=== PATIENT | female | born 1945 | race Caucasian/White ===

== ENCOUNTER 2018-07-31 12:02 | Day surgery (SDC) | payer MEDICARE ==
[~2018-07-31] VITALS: Ht 1844 cm; Wt 137.9 kg
--- NOTE | ~2018-07-31 | OP ---
PATIENT NAME: DENIZ JARRELL MEDICAL RECORD: [id number] :41 LOCATION:[facility] ADMISSION DATE: SURGEON: SELENA LEWIS MD DATE OF OPERATION: 07/31/2018 PREOPERATIVE DIAGNOSES: End-stage renal disease and morbid obesity. POSTOPERATIVE DIAGNOSES: End-stage renal disease and morbid obesity. OPERATION PERFORMED: Creation of a left brachiocephalic arteriovenous fistula. SURGEON: Selena Lewis MD ANESTHESIA: General per AUTOCAD DETAILER. REFERRING PHYSICIAN: Dr. Paulson PREOPERATIVE NOTE: Ms. Jarrell is a 73-year-old white female patient near [place]. She is on chronic hemodialysis and needs long-term access. She is brought to the operating room now for creation of a fistula in her left arm. She is right handed. She has had vein mapping, which indicated she would be a good candidate for a left radiocephalic Rachid type AV fistula. DESCRIPTION OF PROCEDURE: Under general anesthesia and without a nerve block, the patient was prepped and draped in sterile manner. I examined her with ultrasound and found that the radial artery at the wrist was probably the limiting factor. It was heavily calcified and demonstrated areas of stenosis and I thought it was not a good artery to base a fistula on. The brachial artery and median cubital vein at the antecubital level were excellent. I made a transverse incision and exposed the artery and vein. They were occluded and controlled with Silastic loops and atraumatic vascular clamps as needed. The vein was distally ligated, transected and bevelled and the artery occluded at the bifurcation was Silastic tapes. The artery was opened and flushed proximally and distally with heparinized saline. The vein was flushed with heparinized saline and treated with topical papaverine. It was anastomosed end-to-side, end-of-vein to [id number] with running 7-0 Prolene and when that suture line was completed, it was hemostatic. Excellent flow was demonstrated by excellent pulsation and palpable thrill developed immediately upon release of clamps and loops. Doppler demonstrated pulsatile continuous flow. The wound was irrigated with Ancef-gentamicin solution, infiltrated with 0.25% Marcaine and closed with interrupted inverted 3-0 Vicryl and running intracuticular 4-0 Monocryl and Dermabond glue. It was dressed with Maxorb Ag, Tegaderm, and Cavilon skin prep, and the patient awakened and taken to the recovery room. There was no blood loss during the procedure. Sponges, instruments, and needles were accounted for. No specimen was submitted for histopathology. PLAN: The patient will be discharged to home this evening. She is given a prescription for 14 tablets of [place] 5/325, she can take for pain. She is to continue her home medications, diet, dialysis schedule, etc. She is to return to see me in my office next week. TRANSINT:[id number] Voice Confirmation ID: [id number] DOCUMENT ID: [id number] cc: Estefany Powers OPERATIVE REPORT [id number] DENIZ JARRELL JAMES MD CC: LYLE PAULSON MD and [facility] [id number] DICTATION DATE: 07/31/181899 CUTTING SUPERVISOR: 07/31/182328 [facility] 07/31/18 [facility] [address] [place] [address]
[2018-07-31 12:50] LABS: BASOPHILS 0.3 % (0-2); EOSINOPHILS 2.9 % (0-7); HEMATOCRIT 33.4 % (36.0-48.0); IMMATURE GRANULOCYTES 1.9 % (0-5); MCH 31.2 pg (26.0-34.0); MCHC 32.9 g/dL (31.0-37.0); MCV 94.6 fL (80.0-100.0); MEAN PLATELET VOLUME 9.3 fL (7.4-10.4); MONOCYTES 8.2 % (2-11); NEUTROPHILS 73.7 % (40-80); PLATELET COUNT 215 10x3/uL (130-400); RBC 3.53 10x6/uL (4.00-5.40); RDW 15.4 % (11.5-14.5); WBC 11.2 10x3/uL (4.8-10.8)
[2018-07-31 12:57] LABS: INR 1.12 (0.85-1.17); PROTIME 13.9 SECONDS (11.6-15.0)
[2018-07-31 13:06] LABS: CALCIUM 8.6 mg/dL (8.5-10.1); CARBON DIOXIDE 26.2 mmol/L (21.0-32.0); CREATININE - SERUM 3.8 mg/dL (0.6-1.3); POTASSIUM - SERUM 4.2 mmol/L (3.5-5.1)
[2018-07-31] MEDS ORDERED: DALIRESP500 MCG (14:16)
[2018-07-31] MEDS ORDERED: ISOSORBIDE MONO30 M1 (14:16)
[2018-07-31] MEDS ORDERED: OMEPRAZOLE CAP 20M (14:17)
[2018-07-31] MEDS ORDERED: CARDIZEM120 MG PO (14:17)
[2018-07-31] MEDS ORDERED: COUMADIN7.5 MG (14:18)
[2018-07-31] MEDS ORDERED: ZOFRAN4 MG (14:18)
[2018-07-31] MEDS ORDERED: PROTONIX40 MG (14:18)
[2018-07-31] MEDS ORDERED: LEVOTHYROXINE50 MCG (14:18)
[2018-07-31] MEDS ORDERED: LIPITOR10 MG PO (14:19)
[2018-07-31] MEDS ORDERED: HYDROCODON-ACE1 EA10 PO (14:19)
[2018-07-31] MEDS ORDERED: NOVOLOG INJ FLE (14:19)
[2018-07-31] MEDS ORDERED: AMITIZA8 MCG PO (14:20)
[2018-07-31] MEDS ORDERED: ZOLOFT100 MG PO (14:20)
[2018-07-31] MEDS ORDERED: BASAGLAR K100 UNIT/1 SC (14:20)
[2018-07-31] MEDS ORDERED: ZITHROMAX TRI-500 MG (14:21)
[2018-07-31] MEDS ORDERED: FUROSEMIDE40 MG PO (14:21)
[2018-07-31] MEDS ORDERED: ULORIC40 MG PO (14:22)
[2018-07-31 14:39] VITALS: Ht 1844 cm; Wt 137.9 kg
[2018-07-31] MEDS ORDERED: HYDROCODON-ACE1 EAC7 PO (18:54)
--- NOTE | 2018-07-31 19:31 | NUR ---
CONSULTED ANESTHESIA REGARDING INCREASED BLOOD SUGAR LEVELS OF 312MG/DL. VERBAL ORDERS RECEIVED PER DR WILLIAM/JACQUE WALTON CRNA TO ADMINISTER 10U REGULAR INSULIN NOW IN PACU AND RECHECK AGAIN IN 30 MINUTES.
[2018-07-31 20:29] VITALS: BP 177/48
[2018-07-31 20:45] VITALS: BP 177/48
[2018-07-31 23:40] VITALS: BP 127/76
== END 2018-07-31 23:00 | disposition home or self-care (01) ==
LOC: D.OPS 12:02 → D.M2 19:47 → D.OPS 23:00
PROVIDERS: Surgery; ATTEND Internal Medicine Nephrology
DX: N18.6 End stage renal disease (principal); Z01.812 Encounter for preprocedural laboratory examination

== ENCOUNTER 2019-07-23 16:58 | Inpatient (IN) | payer MEDICARE ==
[~2019-07-23] VITALS: Ht 177.8 cm; Wt 138.6 kg
[~2019-07-23 16:58] MED LIST: AMITIZA8 MCG PO; BASAGLAR K100 UNIT/1 SC; CARDIZEM120 MG PO; COUMADIN7.5 MG PO; DALIRESP500 MCG; FUROSEMIDE40 MG PO; HYDROCODON-ACE1 EA10 PO; HYDROCODON-ACE1 EAC7 PO; ISOSORBIDE MONO30 M1; LEVOTHYROXINE50 MCG PO; LIPITOR10 MG PO; NOVOLOG INJ FLE SQ; OMEPRAZOLE CAP 20M PO; PROTONIX40 MG PO; ULORIC40 MG PO; ZITHROMAX TRI-500 MG; ZOFRAN4 MG PO; ZOLOFT100 MG PO
[2019-07-23 17:44] LABS: BASOPHILS 0.2 % (0-2); EOSINOPHILS 1.2 % (0-7); HEMATOCRIT 30.4 % (36.0-48.0); HEMOGLOBIN 10.1 g/dL (12-16); LYMPHOCYTES 8.2 % (15-50); MCH 32.6 pg (26.0-34.0); MCHC 33.2 g/dL (31.0-37.0); MCV 98.1 fL (80.0-100.0); MEAN PLATELET VOLUME 9.1 fL (7.4-10.4); MONOCYTES 10.5 % (2-11); NEUTROPHILS 78.9 % (40-80); PLATELET COUNT 226 10x3/uL (130-400); RDW 15.5 % (11.5-14.5); WBC 12.4 10x3/uL (4.8-10.8)
[2019-07-23 17:59] LABS: APTT 54.4 SECONDS (22.8-39.4); INR 3.26 (0.85-1.17); PROTIME 32.7 SECONDS (11.6-15.0)
[2019-07-23 18:02] LABS: CALC OSMOLALITY 291 mosm/kg (275-300); CALCIUM 9.1 mg/dL (8.5-10.1); CHLORIDE - SERUM 96 mmol/L (98-107); CREATININE - SERUM 6.7 mg/dL (0.6-1.3); GLUCOSE 263 mg/dL (74-106); POTASSIUM - SERUM 4.8 mmol/L (3.5-5.1); SODIUM 133 mmol/L (136-145); UREA NITROGEN 60 mg/dL (7-18); eGFR NON AFRICAN AMERICAN 6 mL/min (90-120)
[2019-07-23 18:19] LABS: ALKALINE PHOSPHATASE 101 U/L (30-120); ALT (SGPT) 16 U/L (10-68); BILIRUBIN - TOTAL 0.64 mg/dL (0.2-1.3); CKMB 0.7 U/L (0.0-3.6); CREATINE KINASE 53 UL (21-215); PRO BNP 3487 pg/mL (0-450); PROTEIN - SERUM 7.3 g/dL (6.4-8.2)
[2019-07-23 18:22] LABS: TROPONIN-I < 0.017 ng/mL (0.000-0.060)
--- NOTE | 2019-07-23 19:16 | NUR ---
REPORT TO KIM ECHEVARRIA
--- NOTE | 2019-07-23 20:00 | NUR ---
[facility] WHO RECIEVED REPORT FROM TISSUE COORDINATOR. PT ARRIVED BY WHEELCHAIR. PT AFVSS, AAOX4, NO S/S OF RT DISTRESS. RR EVEN AND UNLABORED. PT ON 4L O2. PT IV CEFTRIAXONE INFUSING ON ARRIVAL. WILL ADMINISTER ZITHROMAX WHEN COMPLETED. PT DENIES ANY FURTHER NEEDS AT THIS TIME. WILL CPOC. PT ORIENTED TO ROOM. CL WITHIN REACH, BED IN LOW, SR UP X2.
--- NOTE | 2019-07-23 20:30 | NUR ---
DIALYSIS NURSE IN PT'S ROOM AT THIS TIME. IV ZITHROMAX INFUSING. FSBS 268. TREATED PER SLIDING SCALE. PT STATES SHE HAS NOT HAD ANYTHING TO EAT SINCE MONDAY. SANDWICH WITH PROVIDED. PT VOICED THANKS. PT DENIES ANY FURTHER NEEDS AT THIS TIME. WILL CPOC. CL WITHIN REACH, BED IN LOW, SR UP X2.
--- NOTE | 2019-07-23 21:27 | NUR ---
PT ON HOME CPAP AT THIS TIME. NOTIFY RT TO HELP SET UP.
[2019-07-23 21:49] VITALS: BP 159/60; BMI 44.2
[2019-07-24 01:14] VITALS: BP 141/95
[2019-07-24 04:37] LABS: BASOPHILS 0.1 % (0-2); EOSINOPHILS 2.5 % (0-7); HEMATOCRIT 30.3 % (36.0-48.0); IMMATURE GRANULOCYTES 0.9 % (0-5); LYMPHOCYTES 9.8 % (15-50); MCH 32.3 pg (26.0-34.0); MCV 97.7 fL (80.0-100.0); MEAN PLATELET VOLUME 8.8 fL (7.4-10.4); MONOCYTES 11.4 % (2-11); NEUTROPHILS 75.3 % (40-80); PLATELET COUNT 205 10x3/uL (130-400); RDW 15.5 % (11.5-14.5); WBC 10.2 10x3/uL (4.8-10.8)
[2019-07-24 05:01] LABS: ALBUMIN 2.9 g/dL (3.4-5.0); ANION GAP 13.7 mmol/L (8-16); BILIRUBIN - TOTAL 0.56 mg/dL (0.2-1.3); CALCIUM 8.4 mg/dL (8.5-10.1); CARBON DIOXIDE 29.5 mmol/L (21.0-32.0); CREATININE - SERUM 5.4 mg/dL (0.6-1.3); MAGNESIUM - SERUM 1.9 mg/dL (1.8-2.4); PHOSPHOROUS 3.7 mg/dL (2.5-4.9); POTASSIUM - SERUM 4.2 mmol/L (3.5-5.1); PROTEIN - SERUM 7.3 g/dL (6.4-8.2)
[2019-07-24 06:51] VITALS: BP 119/70
--- NOTE | 2019-07-24 10:28 | NUR ---
CALLED [facility] AT [phone] SPOKE WITH JU, ASKED HER TO FAX A LIST OF PT'S MEDICATIONS TO [phone].
--- NOTE | 2019-07-24 11:14 | NUR ---
BLOOD SUGAR OF 348, 8UNITS GIVEN PER S/S. PT RESTING COMFORTABLY IN BED, DENIES ANY NEEDS AT THIS TIME. CALL LIGHT IN REACH, NAD NOTED.
[2019-07-24 11:25] VITALS: BP 127/41
[2019-07-24] MEDS ORDERED: REGLAN5 MG PO (13:38)
[2019-07-24] MEDS ORDERED: FUROSEMIDE20 MG PO (13:41)
[2019-07-24] MEDS ORDERED: PERCOCET 10-321 EAC1 PO (13:45)
[2019-07-24] MEDS ORDERED: ISOSORBIDE MONO30 M1 PO (13:47)
[2019-07-24] MEDS ORDERED: XALATAN 0.0052.5 ML EACH EYE (13:47)
[2019-07-24] MEDS ORDERED: EMLA CREAM 30 G30 G1 TOPICAL (13:48)
[2019-07-24] MEDS ORDERED: LANOXIN125 MCG PO (13:49)
[2019-07-24] MEDS ORDERED: DULCOLAX5 MG PO (13:50)
[2019-07-24] MEDS ORDERED: PHOSLO667 MG PO (13:50)
[2019-07-24] MEDS ORDERED: LANTUS (13:51)
[2019-07-24 14:26] VITALS: BP 113/37
[2019-07-24 14:38] VITALS: Ht 177.8 cm; Wt 138.6 kg
--- NOTE | 2019-07-24 15:49 | NUR ---
PER RISHI HUGO PT NEEDS TO STAY ON DROPLET ISOLATION BECAUSE SHE TESTED POSITIVE IN THE DIALYSIS UNIT AND NEGATIVE HERE.
[2019-07-24 18:31] VITALS: BP 157/81
[2019-07-24 20:00] VITALS: BP 190/61
[2019-07-25 01:33] VITALS: BP 137/71
--- NOTE | 2019-07-25 01:58 | NUR ---
PT LYING IN BED RESTING WITH EYES CLOSED. EASILY AWAKEN WITH VOICE STIMULATION. PT IS WEARING HOME BIPAP. NO SIGNS OR SYMPOTMS OF DISTRESS NOTED RESPIRATIONS EVEN AND UNLABORED. PM SNACK GIVEN. PT ENCOURAGED TO CALL FOR HELP WHEN NEEDED. CALL LIGHT WITH IN REACH AND BED IS IN ITS LOWEST POSITON. WILL CONTINUE TO MONITOR
[2019-07-25 04:00] VITALS: BP 121/52
--- NOTE | 2019-07-25 04:07 | NUR ---
PT LYING IN BED RESTING NO DISTRESS NOTED. EASILY AWAKEN WITH VOICE STIMULATION. PT ENCOURAGED TO CALL FOR HELP WHEN GETTING IN AND OUT OF BED. CALL LIGHT WITH IN REACH. WILL CONTINUE TO MONITOR
--- NOTE | 2019-07-25 04:54 | NUR ---
I have reviewed this patient and I concur with the Shift Assessment completed by the Licensed Practical Nurse today this shift.
[2019-07-25 05:56] LABS: BASOPHILS 0.2 % (0-2); EOSINOPHILS 5.6 % (0-7); HEMATOCRIT 28.4 % (36.0-48.0); HEMOGLOBIN 9.4 g/dL (12-16); IMMATURE GRANULOCYTES 0.9 % (0-5); LYMPHOCYTES 10.5 % (15-50); MCH 32.4 pg (26.0-34.0); MCHC 33.1 g/dL (31.0-37.0); MCV 97.9 fL (80.0-100.0); MEAN PLATELET VOLUME 9.1 fL (7.4-10.4); MONOCYTES 10.5 % (2-11); NEUTROPHILS 72.3 % (40-80); PLATELET COUNT 207 10x3/uL (130-400); RDW 15.4 % (11.5-14.5); WBC 9.3 10x3/uL (4.8-10.8)
[2019-07-25 06:04] LABS: INR 3.15 (0.85-1.17); PROTIME 31.8 SECONDS (11.6-15.0)
[2019-07-25 06:12] LABS: ANION GAP 13.9 mmol/L (8-16); CALCIUM 8.3 mg/dL (8.5-10.1); CARBON DIOXIDE 28.3 mmol/L (21.0-32.0); CREATININE - SERUM 6.2 mg/dL (0.6-1.3); POTASSIUM - SERUM 4.2 mmol/L (3.5-5.1)
[2019-07-25 06:13] LABS: PHOSPHOROUS 5.3 mg/dL (2.5-4.9)
[2019-07-25 09:35] VITALS: BP 149/58
[2019-07-25 13:42] VITALS: BP 150/55
[2019-07-25 18:32] VITALS: BP 155/73
[2019-07-25 20:00] VITALS: BP 172/45
[2019-07-26] VITALS: BP 143/36
[2019-07-26 04:00] VITALS: BP 147/45
[2019-07-26 06:36] LABS: BASOPHILS 0.2 % (0-2); HEMATOCRIT 28.4 % (36.0-48.0); HEMOGLOBIN 9.3 g/dL (12-16); LYMPHOCYTES 13.5 % (15-50); MCHC 32.7 g/dL (31.0-37.0); MCV 97.6 fL (80.0-100.0); MONOCYTES 9.3 % (2-11); PLATELET COUNT 208 10x3/uL (130-400); RBC 2.91 10x6/uL (4.00-5.40); RDW 15.4 % (11.5-14.5); WBC 8.1 10x3/uL (4.8-10.8)
[2019-07-26 07:16] LABS: ANION GAP 13.6 mmol/L (8-16); CALCIUM 7.8 mg/dL (8.5-10.1); CARBON DIOXIDE 28.5 mmol/L (21.0-32.0); CREATININE - SERUM 5.2 mg/dL (0.6-1.3); DIGOXIN 0.78 ng/mL (0.90-2.00); PHOSPHOROUS 5.2 mg/dL (2.5-4.9); POTASSIUM - SERUM 4.1 mmol/L (3.5-5.1)
[2019-07-26 09:10] VITALS: BP 152/40
[2019-07-26 10:10] LABS: HEPATITIS C ANTIBODY <0.1 S/CO RAT (0.0-0.9)
--- NOTE | 2019-07-26 10:12 | NUR ---
ASSESSMENT DONE. DENIES NEEDS
[2019-07-26 12:54] VITALS: BP 143/96
--- NOTE | 2019-07-26 13:02 | NUR ---
Nutrition Follow-up: Eating well. Noted 100% of breakfast eaten per record. Diet: Renal ADA PO intake: 100% x 4 meals No new wt; last wt: 308# (07/23) Last BM: 07/23 per chart Labs noted: Glu 307, K+ 4.1, PO4 5.2, Ca 7.8 Meds noted: Coumadin, Lasix, Phoslo, Protonix, Reglan, Humulin, Floranex -Continue current diet as tolerated. -Need new wt; noted daily wts ordered. -RD following.
--- NOTE | 2019-07-26 15:48 | NUR ---
I have reviewed this patient and I concur with the Shift Assessment completed by the Licensed Practical Nurse today this shift.
[2019-07-26 17:50] VITALS: BP 149/36
--- NOTE | 2019-07-26 19:50 | NUR ---
PT SITTING UP ON RIGHT SIDE OF BED. NO SINGS OR SYMPTOMS OF DISTRESS NOTED. RESPIRATIONS EVEN AND UNLABORED. PT ENCOURAGED TO CALL FOR HELP WHEN NEEDED. CALL LIGHT WITHI N REACH. WILL CONTINUE TO MONITOR
[2019-07-26 20:30] VITALS: BP 108/49
[2019-07-27 00:30] VITALS: BP 127/44
--- NOTE | 2019-07-27 01:08 | NUR ---
PT RESTING IN BED WITH EYES CLOSED. EASILY AWAKEN WITH VOICE STIMULATION. NO SIGNS OR SYMPTOMS OF DISTRESS NOTED. PT HAS HOME C-PAP ON. SNACK GIVEN PER PT REQUEST. CALL LIGHT WITH IN REACH WILL CONTINUE TO MONITOR.
--- NOTE | 2019-07-27 02:00 | NUR ---
I have reviewed this patient and I concur with the Shift Assessment completed by the Licensed Practical Nurse today this shift.
[2019-07-27 04:30] VITALS: BP 121/52
[2019-07-27 05:09] LABS: HEPATITIS BE ANTIGEN Negative (Negative)
[2019-07-27 06:14] LABS: BASOPHILS 0.3 % (0-2); EOSINOPHILS 5.4 % (0-7); HEMATOCRIT 27.3 % (36.0-48.0); HEMOGLOBIN 9.1 g/dL (12-16); LYMPHOCYTES 11.1 % (15-50); MCH 32.4 pg (26.0-34.0); MCHC 33.3 g/dL (31.0-37.0); MCV 97.2 fL (80.0-100.0); MEAN PLATELET VOLUME 9.4 fL (7.4-10.4); MONOCYTES 10.8 % (2-11); NEUTROPHILS 71.4 % (40-80); PLATELET COUNT 211 10x3/uL (130-400); RBC 2.81 10x6/uL (4.00-5.40); RDW 15.1 % (11.5-14.5); WBC 9.2 10x3/uL (4.8-10.8)
[2019-07-27 06:35] LABS: ANION GAP 16.7 mmol/L (8-16); CALCIUM 8.6 mg/dL (8.5-10.1); CARBON DIOXIDE 26.5 mmol/L (21.0-32.0); CREATININE - SERUM 6.2 mg/dL (0.6-1.3); PHOSPHOROUS 6.2 mg/dL (2.5-4.9); POTASSIUM - SERUM 4.2 mmol/L (3.5-5.1)
[2019-07-27 06:42] LABS: INR 2.55 (0.85-1.17); PROTIME 27.1 SECONDS (11.6-15.0)
[2019-07-27 08:58] VITALS: BP 181/75
--- NOTE | 2019-07-27 11:42 | NUR ---
PT RECIEVING DIALYSIS IN ROOM. PT A/O X4 FEELING ANXIOUS SHE CAN'T BREATH. VSS. ONE TIME ORDER FOR XANEX PUT IN . BED LOW CALL LIGHT WITHIN REACH. WILL CONTINUE TO MONITOR.
--- NOTE | 2019-07-27 12:44 | NUR ---
I have reviewed this patient and I concur with the Shift Assessment completed by the Licensed Practical Nurse today this shift.
--- NOTE | 2019-07-27 17:06 | NUR ---
1310-PT HAD DIALYSIS IN ROOM. VSS. 2L PULLED OFF. PT GOT ANXIOUS DURING TREATMENT FEELING LIKE SHE COULDNT BREATH. O2-94%. VALDEMAR DOUGLAS CONSULTED NEW ORDER RECIEVED FOR ONE TIME XANEX. BED LOW CLL LIGHT WITHIN REACH. WILL CONTINUE TO MONITOR.
[2019-07-27 17:56] VITALS: BP 146/53
[2019-07-27 20:00] VITALS: BP 149/39
[2019-07-28] VITALS: BP 154/44
[2019-07-28 04:00] VITALS: BP 135/41
[2019-07-28 06:30] LABS: INR 2.24 (0.85-1.17); PROTIME 24.5 SECONDS (11.6-15.0)
[2019-07-28 09:54] LABS: BASOPHILS 0.3 % (0-2); EOSINOPHILS 4.6 % (0-7); HEMATOCRIT 29.5 % (36.0-48.0); HEMOGLOBIN 9.6 g/dL (12-16); IMMATURE GRANULOCYTES 1.9 % (0-5); MCH 32.1 pg (26.0-34.0); MCHC 32.5 g/dL (31.0-37.0); MCV 98.7 fL (80.0-100.0); MEAN PLATELET VOLUME 9.1 fL (7.4-10.4); MONOCYTES 8.7 % (2-11); NEUTROPHILS 71.5 % (40-80); PLATELET COUNT 235 10x3/uL (130-400); RBC 2.99 10x6/uL (4.00-5.40); RDW 15.2 % (11.5-14.5); WBC 9.5 10x3/uL (4.8-10.8)
[2019-07-28 10:00] VITALS: BP 112/61
[2019-07-28 10:08] LABS: ANION GAP 14.1 mmol/L (8-16); CALCIUM 8.7 mg/dL (8.5-10.1); CARBON DIOXIDE 27.8 mmol/L (21.0-32.0); CREATININE - SERUM 5.3 mg/dL (0.6-1.3); POTASSIUM - SERUM 3.9 mmol/L (3.5-5.1)
[2019-07-28 16:37] VITALS: BP 160/65
--- NOTE | 2019-07-28 19:46 | NUR ---
CHECKED ON PT THREE TIMES CONTINUES TO REST WITH EYES CLOSED AND RESP DEVICE IN PLACE WILL CONTINUE TO OBSERVE ISOLATION BED IS LOW AND LOCKED CALL LIGHT IS IN REACH
[2019-07-28 20:00] VITALS: BP 149/39
[2019-07-29 00:30] VITALS: BP 129/38
[2019-07-29 04:00] VITALS: BP 144/36
--- NOTE | 2019-07-29 05:09 | NUR ---
I have reviewed this patient and I concur with the Shift Assessment completed by the Licensed Practical Nurse today this shift.
[2019-07-29 07:08] LABS: INR 2.21 (0.85-1.17); PROTIME 24.2 SECONDS (11.6-15.0)
[2019-07-29 07:14] LABS: ANION GAP 13.3 mmol/L (8-16); CALCIUM 8.1 mg/dL (8.5-10.1); CARBON DIOXIDE 29.7 mmol/L (21.0-32.0); CREATININE - SERUM 6.1 mg/dL (0.6-1.3)
[2019-07-29 08:09] LABS: HEMATOCRIT 25.5 % (36.0-48.0); HEMOGLOBIN 8.4 g/dL (12-16); MCH 32.1 pg (26.0-34.0); MCHC 32.9 g/dL (31.0-37.0); MCV 97.3 fL (80.0-100.0); MEAN PLATELET VOLUME 9.2 fL (7.4-10.4); PLATELET COUNT 221 10x3/uL (130-400); RBC 2.62 10x6/uL (4.00-5.40); RDW 14.9 % (11.5-14.5); WBC 10.3 10x3/uL (4.8-10.8)
[2019-07-29 09:00] VITALS: BP 145/44
--- NOTE | 2019-07-29 09:40 | NUR ---
PT TAKEN TO DIALYSIS VIA BED.
[2019-07-29 10:09] LABS: EOSINOPHILS 1 % (0-7); LYMPHOCYTES 9 % (15-50); MONOCYTES 9 % (2-11); NEUTROPHILS 81 % (40-80); PLATELET ESTIMATE NORMAL
--- NOTE | 2019-07-29 10:12 | MORECARE ---
CASE MANAGEMENT DISCHARGE SUMMARY PATIENT: DENIZ JARRELL UNIT: [id number] ADM DATE: 07/23/19 AGE: 74 : 43 SEX: F ROOM/BED: D.[facility]7 AUTHOR: ABHILASH,DOC PHYSICIAN: REFERRING PHYSICIAN: JOCELYN PEARL MD DATE OF SERVICE: 07/29/19 Discharge Plan Patient Name: DENIZ JARRELL Facility: [facility]:[place] : 1945 Planned Disposition: Home with Home Health Anticipated Discharge Date: 07/29/19 Discharge Date: Expected LOS: 6 Initial Reviewer: [email or web address] Initial Review Date: 07/29/2019 Generated: 07/29/19 11:11 am DCPIA - Discharge Planning Initial Assessment Updated by VICTOR MANUEL: Gerber Delgado on 07/29/19 10:06 am * Is the patient Alert and Oriented? Yes * How many steps to enter\exit or inside your home? NONE * PCP DR. LIZ * Pharmacy [facility] * Preadmission Environment Home with Family * ADLs Independent * Equipment Bedside Commode Cane Nebulizer Other Oxygen Rolling Walker * Other Equipment TRILOGY MACHINE HOME AND PORTABLE OXYGEN, [facility] IS PROVIDER * List name and contact numbers for known caregivers / representatives who currently or will assist patient after discharge: DEBBIE JARRELL, SPOUSE, * Verbal permission to speak to the caregivers and representatives has been obtained from the patient. N/A * Community resources currently utilized None * Please name any agencies selected above. NONE * Additional services required to return to the preadmission environment? No * Can the patient safely return to the preadmission environment? Yes * Has this patient been hospitalized within the prior 30 days at any hospital? No External Providers [facility] Provider[facility] Next Contact Date: 07/29/2019 Service Request Date: Service Type: Resolution: Reviewer: Comments: Coverage Notice Reviewer: [id number] Marshall Delgado Notice Issued Date-Time: 07/29/2019 9:30 Notice Type: Patient Choice Letter Notice Delivered To: Patient Relationship to Patient: Nuclear Weapons Specialist Name: Delivery Method: HAND - Hand Delivered Madai Days: Prior Verbal Notification: Recipient Understood Notice: Yes Recipient Signature: Yes Med Rec Note Co-signed by Attending: Coverage Notice Comment: NO HOME HEALTH PREFERENCE Reviewer: [email or web address] Marshall Delgado Notice Issued Date-Time: 07/29/2019 9:30 Notice Type: IM Discharge Notice Notice Delivered To: Patient Relationship to Patient: Nuclear Weapons Specialist Name: Delivery Method: HAND - Hand Delivered Madai Days: Prior Verbal Notification: Recipient Understood Notice: Yes Recipient Signature: Yes Med Rec Note Co-signed by Attending: Coverage Notice Comment: Patient Name: DENIZ JARRELL Page [phone] at 1012 All edits/amendments must be made on the electronic document DICTATION DATE: 07/29/19 1011 RV TECHNICIAN: MARÍA 07/29/19 1011 RPT#: [id number] DC DATE: STATUS: ADM IN [facility] [address] [place] [address] END OF REPORT
--- NOTE | 2019-07-29 10:20 | MORECARE ---
CASE MANAGEMENT DISCHARGE SUMMARY PATIENT: DENIZ JARRELL UNIT: [id number] ADM DATE: 07/23/19 AGE: 74 : 43 SEX: F ROOM/BED: D.0313 AUTHOR: ABHILASH,DOC PHYSICIAN: REFERRING PHYSICIAN: JOCELYN PEARL MD DATE OF SERVICE: 07/29/19 Discharge Plan Patient Name: DENIZ JARRELL Facility: [facility]:[place] : 1945 Planned Disposition: Home with Home Health Anticipated Discharge Date: 07/29/19 Discharge Date: Expected LOS: 6 Initial Reviewer: [email or web address] Initial Review Date: 07/29/2019 Generated: 07/29/19 11:19 am Comments DCP- Discharge Planning Updated by [id number]: Gerber Delgado on 07/29/19 9:[address] Patient Name: DENIZ JARRELL Admission Status: ER Accout number: [id number] Admission Date: 07-23-2019 : 1945 Admission Diagnosis: Attending: SOFI Current LOS: 6 Anticipated DC Date: 07-29-2019 Planned Disposition: Home with Home Health Primary Insurance: MEDICARE A & B PLANNED EXTERNAL PROVIDER: [facility] Discharge Planning Comments: CM RECEIVED HOME HEALTH ORDER, MET WITH PT IN ROOM TO DISCUSS DISCHARGE PLANNING AND NEEDS. PT REPORTS LIVING AT HOME INDEPENDENTLY WITH HER SPOUSE. PT HAS BEDSIDE COMMODE, CANE, NEBULIZER, HOME AND PORTABLE OXYGEN, TRILOGY MACHINE AND WALKER FROM [facility]. PT HAS NO OUTSIDE SERVICES ASSISTING IN THE HOME. CM DISCUSSED AVAILABILITY OF HOME HEALTH, REHAB SERVICES AND MEDICAL EQUIPMENT. PT WOULD LIKE HOME HEALTH WITH HOME HEALTH IN [place] THAT HER DAUGHTER WORKS FOR, SHE HAS USED THEM IN PAST AND CANNOT REMEMBER THE COMPANY NAME. CHOICE SIGNED FOR NO HOME HEALTH PROVIDER PREFERENCE. PT REPORTS HER DAUGHTER WILL PICK HER UP FOR DISCHARGE HOME. IMPORTANT MESSAGE FROM MEDICARE PROVIDED AND EXPLAINED. CM CALLED [facility], , SPOKE TO OSMAN AND PROVIDED REFERRAL. CM FAXED REFERRAL TO [facility] AT [phone]. REFINERY OPERATOR HELPER NURSE NOTIFIED. Court Advocate: Gerber Delgado DCPIA - Discharge Planning Initial Assessment Updated by [id number]: Gerber Delgado on 07/29/19 10:06 am * Is the patient Alert and Oriented? Yes * How many steps to enter\exit or inside your home? NONE * PCP DR. LIZ * Pharmacy [facility] * Preadmission Environment Home with Family * ADLs Independent * Equipment Bedside Commode Cane Nebulizer Other Oxygen Rolling Walker * Other Equipment TRILOGY MACHINE HOME AND PORTABLE OXYGEN, [facility] IS PROVIDER * List name and contact numbers for known caregivers / representatives who currently or will assist patient after discharge: DEBBIE JARRELL, SPOUSE, * Verbal permission to speak to the caregivers and representatives has been obtained from the patient. N/A * Community resources currently utilized None * Please name any agencies selected above. NONE * Additional services required to return to the preadmission environment? No * Can the patient safely return to the preadmission environment? Yes * Has this patient been hospitalized within the prior 30 days at any hospital? No Coverage Notice Reviewer: [id number] Delgado Notice Issued Date-Time: 07/29/2019 9:30 Notice Type: Patient Choice Letter Notice Delivered To: Patient Relationship to Patient: Plant Protection Guard Name: Delivery Method: HAND - Hand Delivered Madai Days: Prior Verbal Notification: Recipient Understood Notice: Yes Recipient Signature: Yes Med Rec Note Co-signed by Attending: Coverage Notice Comment: NO HOME HEALTH PREFERENCE Reviewer: [id number] Delgado Notice Issued Date-Time: 07/29/2019 9:30 Notice Type: IM Discharge Notice Notice Delivered To: Patient Relationship to Patient: Plant Protection Guard Name: Delivery Method: HAND - Hand Delivered Madai Days: Prior Verbal Notification: Recipient Understood Notice: Yes Recipient Signature: Yes Med Rec Note Co-signed by Attending: Coverage Notice Comment: Last DP export: 07/29/19 9:12 a Patient Name: DENIZ JARRELL Page [phone] at 1020 All edits/amendments must be made on the electronic document DICTATION DATE: 07/29/19 1020 BUYER GRAIN: MARÍA 07/29/19 1020 RPT#: [id number] DC DATE: STATUS: ADM IN [facility] [address] [place] [address] END OF REPORT
[2019-07-29 11:00] VITALS: BP 179/73
--- NOTE | 2019-07-29 11:06 | NUR ---
PT TAKEN TO DIALYSIS VIA BED.
--- NOTE | 2019-07-29 11:23 | NUR ---
KIRSTY ALVAREZ IN DIALYSIS STATES TO HOLD DIGOXIN.
[2019-07-29 15:10] LABS: HEPATITIS BE ANTIBODY Negative (Negative)
--- NOTE | 2019-07-29 15:49 | NUR ---
TELEMETRY DC'D. RIGHT AC IV DC'D WITH CTAH INTACT. DISCHARGE INSTRUCTIONS GIVEN TO PT. CHART COPY SIGNED. PT LEFT WITH FAMILY MEMBER. TAKEN DOWN VIA WC BY ACCOUNT INSTALLATION SPECIALIST AND LEFT WITH FAMILY MEMBER IN PERSONAL VEHICLE.
--- NOTE | 2019-07-29 15:58 | NUR ---
I have reviewed this patient and I concur with the Shift Assessment completed by the Licensed Practical Nurse today this shift.
== END 2019-07-29 16:41 | disposition home health service (06) | DRG 291 ==
LOC: D.ER 16:58 → D.M2 18:46
PROVIDERS: Family Medicine; Internal Medicine Nephrology; ADMIT Internal Medicine Nephrology; ATTEND Internal Medicine Nephrology
PROC: 5A1D70Z Performance of Urinary Filtration, Intermittent, Less than 6 Hours Per Day (ICD-10-PCS; principal; 2019-07-25)
DX: I13.2 Hypertensive heart and chronic kidney disease with heart failure and with stage 5 chronic kidney disease, or end stage renal disease (principal); J11.00 Influenza due to unidentified influenza virus with unspecified type of pneumonia; N18.6 End stage renal disease; J96.21 Acute and chronic respiratory failure with hypoxia; J44.0 Chronic obstructive pulmonary disease with (acute) lower respiratory infection; I48.92 Unspecified atrial flutter; E11.22 Type 2 diabetes mellitus with diabetic chronic kidney disease; I50.9 Heart failure, unspecified; D63.1 Anemia in chronic kidney disease; D50.9 Iron deficiency anemia, unspecified

== ENCOUNTER 2019-10-24 15:09 | Inpatient (IN) | payer MEDICARE ==
[~2019-10-24] VITALS: Ht 167.6 cm; Wt 138.2 kg
[~2019-10-24 15:09] MED LIST changes: +DULCOLAX5 MG PO; +EMLA CREAM 30 G30 G1 TOPICAL; +FUROSEMIDE20 MG PO; +ISOSORBIDE MONO30 M1 PO; +LANOXIN125 MCG PO; +LANTUS; +PERCOCET 10-321 EAC1 PO; +PHOSLO667 MG PO; +REGLAN5 MG PO; +XALATAN 0.0052.5 ML EACH EYE
[2019-10-24] MEDS ORDERED: FERRIC CITRATE210 MG PO (15:20)
[2019-10-24] MEDS ORDERED: OMEPRAZOLE20 M1 PO (15:22)
[2019-10-24] MEDS ORDERED: REMERON30 MG PO (15:23)
[2019-10-24] MEDS ORDERED: AMITIZA8 MCG PO (15:27)
[2019-10-24] MEDS ORDERED: LEXAPRO10 MG PO (15:27)
[2019-10-24 16:12] LABS: HEMATOCRIT 25.3 % (36.0-48.0); MCH 31.3 pg (26.0-34.0); MCHC 31.6 g/dL (31.0-37.0); MCV 98.8 fL (80.0-100.0); MEAN PLATELET VOLUME 9.3 fL (7.4-10.4); PLATELET COUNT 228 10x3/uL (130-400); RBC 2.56 10x6/uL (4.00-5.40); RDW 14.9 % (11.5-14.5); WBC 20.8 10x3/uL (4.8-10.8)
[2019-10-24 16:14] LABS: APTT 40.6 SECONDS (22.8-39.4)
[2019-10-24 16:16] LABS: INR 2.53 (0.85-1.17); PROTIME 26.9 SECONDS (11.6-15.0)
[2019-10-24 16:34] LABS: EOSINOPHILS 1 % (0-7); LYMPHOCYTES 6 % (15-50); MONOCYTES 4 % (2-11); NEUTROPHILS 86 % (40-80); PLATELET ESTIMATE NORMAL
[2019-10-24 16:37] LABS: CALC OSMOLALITY 294 mosm/kg (275-300); CALCIUM 8.1 mg/dL (8.5-10.1); CARBON DIOXIDE 21.3 mmol/L (21.0-32.0); CHLORIDE - SERUM 93 mmol/L (98-107); CREATININE - SERUM 9.7 mg/dL (0.6-1.3); POTASSIUM - SERUM 4.4 mmol/L (3.5-5.1); SODIUM 135 mmol/L (136-145); UREA NITROGEN 86 mg/dL (7-18); eGFR NON AFRICAN AMERICAN 4 mL/min (90-120)
[2019-10-24 16:38] LABS: GLUCOSE 79 mg/dL (74-106)
[2019-10-24 16:55] LABS: ALBUMIN 2.8 g/dL (3.4-5.0); ALKALINE PHOSPHATASE 138 U/L (30-120); ALT (SGPT) 47 U/L (10-68); BILIRUBIN - TOTAL 0.38 mg/dL (0.2-1.3); CKMB 1.4 U/L (0.0-3.6); CREATINE KINASE 47 UL (21-215); PROTEIN - SERUM 6.5 g/dL (6.4-8.2); TROPONIN-I < 0.017 ng/mL (0.000-0.060)
[2019-10-24 20:00] VITALS: BP 119/48
--- NOTE | 2019-10-24 20:00 | NUR ---
ARIVED VIA BED X4 TO TRANSFER OVER AND BED LOW AND LOCKED WATER AND COMFORT SEEN TO RUDY LIGHT PROVIDED
[2019-10-25] VITALS: BP 144/55
[2019-10-25 04:00] VITALS: BP 136/53
[2019-10-25 04:20] LABS: BASOPHILS 0.1 % (0-2); EOSINOPHILS 0.2 % (0-7); HEMATOCRIT 23.2 % (36.0-48.0); IMMATURE GRANULOCYTES 0.6 % (0-5); LYMPHOCYTES 3.2 % (15-50); MCH 30.8 pg (26.0-34.0); MCV 99.1 fL (80.0-100.0); MEAN PLATELET VOLUME 9.1 fL (7.4-10.4); MONOCYTES 9.2 % (2-11); NEUTROPHILS 86.7 % (40-80); PLATELET COUNT 223 10x3/uL (130-400); RBC 2.34 10x6/uL (4.00-5.40); RDW 15.2 % (11.5-14.5); WBC 19.8 10x3/uL (4.8-10.8)
[2019-10-25 04:53] LABS: ANION GAP 24.4 mmol/L (8-16); CARBON DIOXIDE 20.6 mmol/L (21.0-32.0); CREATININE - SERUM 10.2 mg/dL (0.6-1.3); VANCOMYCIN - RANDOM 18.3 ug/mL (10.0-20.0)
[2019-10-25 04:57] LABS: HEMOGLOBIN 7.2 g/dL (12-16)
[2019-10-25 05:29] VITALS: BMI 42.8
--- NOTE | 2019-10-25 08:00 | NUR ---
SHE IS RATING HER PAIN IN HER ABDOMEN A 10. SHE HAS 2 LARGE BLACK AREAS ON THE RIGHT SIDE OF HER ABDOMEN, 1 SMALL OPEN AREA ON THE LEFT SIDE. HER DAUGHTER IS AT THE BEDSIDE. ASKING QUESTIONS ABOUT DIALYSIS AND WHEN SHE CAN EAT. THE CALL LIGHT IS WITHIN REACH.
--- NOTE | 2019-10-25 09:37 | NUR ---
LAB REPORTED TO ME GRAM POSITIVE COCCI FROM A BLOOD CULTURE.
[2019-10-25 10:51] VITALS: Ht 167.6 cm; Wt 138.2 kg
--- NOTE | 2019-10-25 12:40 | NUR ---
RECEIVED A CALL FROM LAB SAYING THE FFP IS READY, SHE IS IN DIALYSIS. I ASKED THE DIALYSIS NURSE IF THEY GAVE FFP, SHE SAID "NO, JUST BLOOD". LAB IS AWARE THE PATIENT IS NOT ON OUR UNIT AT THIS TIME.
--- NOTE | 2019-10-25 14:51 | NUR ---
SPOKE WITH SANTO ALDRICH FOR DR. LIZAMA, REGARDING BLOOD CULTURE RESULTS. NEW ORDERS RECEIVED.
--- NOTE | 2019-10-25 16:50 | NUR ---
BACK FROM DIALYSIS, SHE IS SLEEPY. HER VS ARE STABLE. HER HANDS ARE SHAKING LIKE SHE IS COLD, BUT SHE STATES SHE IS NOT COLD. SHE HAD PAIN MED AROUND 1 OCLOCK. SHE RECEIVED 1 UNIT OF FFP TODAY.
[2019-10-25 17:48] VITALS: BP 139/45
--- NOTE | 2019-10-25 18:27 | NUR ---
SHE IS SLEEPING NOW VS ARE STABLE AND HER DAUGHTER IS AT THE BEDSIDE.
--- NOTE | 2019-10-25 20:23 | NUR ---
O2@ 4 LITERS PER N/C N PLACE. IV TO RT FA SL.WILL BE NPO P MN. RECIEVED UP IN BED WITH HOB SLIGHTY ELEVATED. VERY HARD TO AROUSE. DTR STATES SHE'S BEEN LIKE THIS SINCE SHE RETURNED FROM DIALYSIS. ABLE TO WAKE HER WITH LOUD VERBAL STIMULI. CLOSES HER EYES WHEN TALKING TO HER. IS ABLE TO GIVE HER NAME BUT CONFUSED TO PLACE , TIME AND SITUATION. ABLE TO GET HER TO DRINK SOME WATER. GAVE HER CHICKEN NOODLE SOUP AND UNABLE TO EAT NOODLE D/T NOT HAVING ANY TEETH.DTR AT BEDSIDE AND UPSET STATING 'SHE WAS'NT LIKE THIS BEFORE DIALYSIS/ MAYBE IT'S THE PAIN MEDICATION." WILL CONT. TO OBSERVE. DRINKING THE BROTH FROM [employer] NOODLE SOUP AT THIS TIME.
[2019-10-25 20:30] VITALS: BP 149/59
[2019-10-26] VITALS (11 sets, daily range): BP systolic 114–160; BP diastolic 40–93
[2019-10-26 08:23] LABS: BASOPHILS 0.1 % (0-2); EOSINOPHILS 0.6 % (0-7); HEMATOCRIT 25.6 % (36.0-48.0); HEMOGLOBIN 7.9 g/dL (12-16); IMMATURE GRANULOCYTES 0.6 % (0-5); LYMPHOCYTES 2.5 % (15-50); MCH 30.6 pg (26.0-34.0); MCHC 30.9 g/dL (31.0-37.0); MCV 99.2 fL (80.0-100.0); MONOCYTES 9.7 % (2-11); NEUTROPHILS 86.5 % (40-80); PLATELET COUNT 240 10x3/uL (130-400); RBC 2.58 10x6/uL (4.00-5.40); RDW 14.9 % (11.5-14.5); WBC 15.8 10x3/uL (4.8-10.8)
[2019-10-26 08:30] LABS: INR 2.58 (0.85-1.17); PROTIME 27.3 SECONDS (11.6-15.0)
[2019-10-26 08:37] LABS: ANION GAP 17.3 mmol/L (8-16); CALCIUM 8.9 mg/dL (8.5-10.1); CARBON DIOXIDE 25.5 mmol/L (21.0-32.0); POTASSIUM - SERUM 4.8 mmol/L (3.5-5.1); VANCOMYCIN - RANDOM 12.8 ug/mL (10.0-20.0)
[2019-10-26 08:42] LABS: CREATININE - SERUM 7.4 mg/dL (0.6-1.3)
--- NOTE | 2019-10-26 12:35 | NUR ---
1145 OPA DISCONTINUED. PATIENT AROUSABLE, MAINTAINING PATENT AIRWAY
--- NOTE | 2019-10-26 12:58 | NUR ---
PT RECEIVED BACK TO ROOM 2103 FROM RR, WOUND VAC TO BILAT ABD. PT RESTLESS, AWAKE REPORTS SEVERE PAIN "ALL OVER". BUPRENEX GIVEN PER PRN ORDER. VSS WILL COTNINUE TO ADAN.
--- NOTE | 2019-10-26 17:30 | NUR ---
DAKINS IRRIGATION INITIATED TO BILAT WOUND VAC DRESSING PER MD ORDER OF IRRIGATE FOR 30 MINUTES WITH 45 CC DAKINS. DRESSINGS CDI NO AIR LEAK NOTED. WILL CONTINUE TO MONITOR.
--- NOTE | 2019-10-26 19:05 | NUR ---
BEDSIDE REPORT RECEIVED, PT CARE ASSUMED. PT LYING IN BED WITH EYES CLOSED, RR EVEN AND NONLABORED, NO S/S OF DISTRESS, AROUSES EASILY TO VOICE, DISORIENTED TO TIME, REORIENTED. INTRODUCED SELF AND WROTE NAME ON BOARD. DENIES ANY NEEDS AT THIS TIME. BED IN LOWEST, SRX2, CALL LIGHT WITHIN REACH. WILL CTM.
[2019-10-27 00:30] VITALS: BP 116/41
[2019-10-27 04:30] VITALS: BP 111/45
[2019-10-27 04:44] LABS: BASOPHILS 0.1 % (0-2); EOSINOPHILS 0.6 % (0-7); HEMATOCRIT 23.9 % (36.0-48.0); IMMATURE GRANULOCYTES 1.5 % (0-5); MONOCYTES 10.7 % (2-11); NEUTROPHILS 83.1 % (40-80); PLATELET COUNT 227 10x3/uL (130-400); RBC 2.39 10x6/uL (4.00-5.40); RDW 15.4 % (11.5-14.5); WBC 13.9 10x3/uL (4.8-10.8)
[2019-10-27 04:46] LABS: HEMOGLOBIN 7.4 g/dL (12-16)
[2019-10-27 05:06] LABS: INR 1.54 (0.85-1.17); PROTIME 18.3 SECONDS (11.6-15.0)
[2019-10-27 05:09] LABS: ANION GAP 21.8 mmol/L (8-16); CALCIUM 9.1 mg/dL (8.5-10.1); CARBON DIOXIDE 21.3 mmol/L (21.0-32.0); CREATININE - SERUM 8.5 mg/dL (0.6-1.3); POTASSIUM - SERUM 5.1 mmol/L (3.5-5.1); VANCOMYCIN - RANDOM 20.7 ug/mL (10.0-20.0)
--- NOTE | 2019-10-27 07:20 | NUR ---
RECIEVE REPORT. RESTING IN BED WITH EYES CLOSED. WOUND VACS FREE FROM AIR LEAKS. NO SIGNS OF DISTRESS. CONTINUE PLAN OF CARE AND SAFETY PRECAUTIONS.
[2019-10-27 09:00] VITALS: BP 135/43
[2019-10-27 13:47] VITALS: BP 156/40
--- NOTE | 2019-10-27 16:10 | NUR ---
ALERT AND ORIENTED X4. RESTING IN BED. PAIN MANAGEMENT CONTINUED FOR INCISIONAL ABDOMINAL PAIN. BILATERAL ABDOMINAL WOUND VACS FREE FROM AIR LEAKS. INITIATE PRBC TRANSFUSION ORDERED. BP-149/43, HR-64, O2-92% @ 2L, T-97.6. DENIES ANY NEEDS. INITIATE WOUND VAC IRRIGATION ORDERED. REMAIN AT BEDSIDE FOR FIRST 15mINS. CONTINUE PLAN OF CARE AND SAFETY PRECAUTIONS.
--- NOTE | 2019-10-27 16:25 | NUR ---
ALERT AND ORIENTED X4. PRBC TRANSFUSION INCREASE RATE TO 115mL/HR. NO SIGNS OF REACTION. T-97.5, HR-64, R-20, O2-92 @2L NC, BP-137/40. CONTINUE TO MONITOR. CONTINUE PLAN OF CARE AND SAFETY PRECAUTIONS.
[2019-10-27 18:07] VITALS: BP 141/44
[2019-10-27 20:00] VITALS: BP 141/37
[2019-10-28] VITALS: BP 143/42
[2019-10-28 04:00] VITALS: BP 154/45
[2019-10-28 06:33] LABS: BASOPHILS 0.1 % (0-2); EOSINOPHILS 1.4 % (0-7); HEMATOCRIT 27.1 % (36.0-48.0); HEMOGLOBIN 8.2 g/dL (12-16); IMMATURE GRANULOCYTES 2.7 % (0-5); LYMPHOCYTES 2.8 % (15-50); MCH 30.3 pg (26.0-34.0); MCHC 30.3 g/dL (31.0-37.0); MEAN PLATELET VOLUME 9.1 fL (7.4-10.4); MONOCYTES 8.2 % (2-11); NEUTROPHILS 84.8 % (40-80); PLATELET COUNT 228 10x3/uL (130-400); RBC 2.71 10x6/uL (4.00-5.40); RDW 15.6 % (11.5-14.5); WBC 13.6 10x3/uL (4.8-10.8)
[2019-10-28 06:52] LABS: INR 1.4 (0.85-1.17); PROTIME 17.1 SECONDS (11.6-15.0)
[2019-10-28 07:01] LABS: ANION GAP 25.9 mmol/L (8-16); CALCIUM 8.4 mg/dL (8.5-10.1); CARBON DIOXIDE 20.6 mmol/L (21.0-32.0); CREATININE - SERUM 9.4 mg/dL (0.6-1.3); POTASSIUM - SERUM 5.5 mmol/L (3.5-5.1); VANCOMYCIN - RANDOM 14.7 ug/mL (10.0-20.0)
--- NOTE | 2019-10-28 07:52 | NUR ---
WOUND VACS TO LOWER ABD. PT ALERT AND ORIENTED X 4. PT IN A BIT OF PAIN. MEDICATIONS PREVIOUSLY GIVEN BY POPCORN VENDOR RN. RIGHT TRIALYSIS INFUSING NORMAL SALINE AT 10. 4LPM NOTED ON OXYGEN. CALLLIGHT IS IN REACH AND BED IS IN LOW POSITION. PT DENIES ANY ADDITIONAL NEEDS AT THIS TIME
[2019-10-28 09:35] VITALS: BP 155/45
--- NOTE | 2019-10-28 11:28 | NUR ---
PT HAD OR DEBRIDEMENT ON 10/26/19 WHICH INCLUDED RIGHT LOWER ABDOMEN (16CM X 38CM X 4CM X 4CM FROM 9 TO 3 OCLOCK) AND LEFT LOWER ABDOMEN (6CM X 15CM X 6CM). CURRENTLY VAC VERAFLO IS BEING USED, INSTILLING 1/2 STRENGTH DAKINS INTO BOTH WOUNDS AND SOAKING FOR APPROX 30 MIN. THEN WOUND VAC THERAPY AT -125MMHG HIGH CONTINUOUS X 4 HOURS. THE WOUNDS HAVE NO ODOR AND PERIWOUNDS SHOW NO REDNESS. AFTER DRESSING CHANGES WERE COMPLETED USING 2 MEDIUM BLACK SPONGES IN EACH WOUND, PT WAS PLACED ON AN AIR OVERLAY MATTRESS. WOUND CARE CONTINUES TO MONITOR.
--- NOTE | 2019-10-28 14:00 | NUR ---
Nutrition Follow-up: Pt sleeping soundly at time of visit this AM and did not wake upon entering room. Noted majority of breakfast tray untouched. Chart reviewed. Noted pt had OR debridement of wounds on 10/[address] HD MWF. Noted PO4 binder changed from Phoslo to Renvela. Diet: Renal ADA PO intake: 0% x 3 yesterday Wt: 265.1# (10/24) Labs noted: K+ 5.5, Glu 164, Ca 8.4 Meds noted: Lasix, Protonix, Remeron, Humalog, Renvela -Encourage PO intake and honor food preferences within diet restrictions. -Offer Nepro with meals. -Will discuss Jose Luis to promote wound healing. -Monitor wt. -RD following.
--- NOTE | 2019-10-28 17:40 | NUR ---
RN TO GIVE SODIUM THIOSULFATE.
--- NOTE | 2019-10-28 17:43 | NUR ---
PHARMACY TO PUT SODIUM THIOSULFATE IN BAG.
--- NOTE | 2019-10-28 19:00 | NUR ---
EVENING ROUNDS COMPLETE. PT LAYING IN BED. NO SIGNS OF DISTRESS. PT DENIES ANY PAIN OR NEEDS AT THIS TIME. CL IN REACH, BED IN LOWEST POSITION.
[2019-10-28 19:01] VITALS: BP 128/34
[2019-10-28 20:00] VITALS: BP 131/75
[2019-10-29] VITALS: BP 123/33
[2019-10-29 04:00] VITALS: BP 139/32
--- NOTE | 2019-10-29 05:50 | NUR ---
HEALTHCARE SCIENCE SPECIALIST ALERTED RN D/T VITALS. UPON ASSESSMENT PATIENT WAS LETHARIC. NOT EASILY AROUSED. RAPID RESPONSE CALLED. ICU NURSE ARRIVED. STONE JOHNSON CALLED. ORDERS GIVEN FOR NARCAN, BIPAP, AND ABG
[2019-10-29 06:19] LABS: BASOPHILS 0.1 % (0-2); EOSINOPHILS 0.8 % (0-7); HEMATOCRIT 27.3 % (36.0-48.0); HEMOGLOBIN 8.2 g/dL (12-16); IMMATURE GRANULOCYTES 2.4 % (0-5); MCH 30.3 pg (26.0-34.0); MCV 100.7 fL (80.0-100.0); MEAN PLATELET VOLUME 9.3 fL (7.4-10.4); NEUTROPHILS 86.7 % (40-80); PLATELET COUNT 236 10x3/uL (130-400); RBC 2.71 10x6/uL (4.00-5.40); RDW 15.7 % (11.5-14.5); WBC 13.6 10x3/uL (4.8-10.8)
[2019-10-29 06:40] LABS: INR 1.27 (0.85-1.17); PROTIME 15.8 SECONDS (11.6-15.0)
[2019-10-29 06:52] LABS: % SATURATION 48 % (15-55); IRON 72 ug/dl (35-150); TOTAL IRON BIND CAPACITY 147 ug/dl (260-445); UNSAT IRON BIND CAPACITY 75 ug/dl (150-375)
[2019-10-29 07:27] LABS: ANION GAP 22.5 mmol/L (8-16); CALCIUM 8.6 mg/dL (8.5-10.1); CARBON DIOXIDE 22.9 mmol/L (21.0-32.0); POTASSIUM - SERUM 5.4 mmol/L (3.5-5.1); VANCOMYCIN - RANDOM 17.8 ug/mL (10.0-20.0)
--- NOTE | 2019-10-29 07:30 | NUR ---
RECIEVE REPORT. ALERT AND ORIENTED X4. STONE, RENAL CHIEF INTERNAL AUDITOR AT BEDSIDE TALKING ABOUT CODE STATUS. REMAIN FULL CODE PER PATIENT REQUEST. CONTINUOUS PULSE OX ON 02 SAT 95% WITH 6L HIGH FLOW NC. CONTINUE PLAN OF CARE AND SAFETY PRECAUTIONS.
[2019-10-29 07:31] LABS: CREATININE - SERUM 6.6 mg/dL (0.6-1.3); PHOSPHOROUS 9.8 mg/dL (2.5-4.9)
[2019-10-29] MEDS ORDERED: ELIQUIS2.5 MG PO (08:03)
[2019-10-29 09:24] VITALS: BP 133/56
--- NOTE | 2019-10-29 10:00 | NUR ---
VALDEMAR RITTER TALKS WITH SPOUSE AND DAUGHTER STAR VIA TELEPHONE OF PATIENT'S CURRENT STATUS. DAUGHTER CATHY CALLS REQUESTING INFORMATION. ASK IF SHE SPOKE WITH FAMILY. CATHY REPLIES, "YES I HAVE SPOKE WITH MY DAD AND I'M WITH MY SISTER." INFORM CATHY BOTH SPOKE WITH VALDEMAR. CATHY REPLIES, "I KNOW BUT I'M ASKING YOU." INFORM HER THERE WAS A RAPID RESPONSE CALLED THIS MORNING AROUND 0600 AND CODE STATUS WAS REVIEWED, THE WOUNDS ARE DUE TO PHOSPHORUS LEVELS NOT CONTROLLED CAUSING CALCIPHYLAXIS. CATHY THEN SAYS "OK" THEN HANGS UP.
[2019-10-29 11:00] VITALS: BP 152/36
--- NOTE | 2019-10-29 13:52 | MORECARE ---
CASE MANAGEMENT DISCHARGE SUMMARY PATIENT: DENIZ JARRELL UNIT: [id number] ADM DATE: 10/24/19 AGE: 74 : 43 SEX: F ROOM/BED: D.2104 AUTHOR: STEPHEN HUNG PHYSICIAN: REFERRING PHYSICIAN: ANITA LIZAMA MD DATE OF SERVICE: 10/29/19 Discharge Plan Patient Name: DENIZ JARRELL Facility: [facility]:[place] : 1945 Planned Disposition: Halfway Facility Anticipated Discharge Date: Discharge Date: Expected LOS: Initial Reviewer: [id number] Initial Review Date: 10/29/2019 Generated: 10/29/19 2:51 pm DCPIA - Discharge Planning Initial Assessment Updated by [email or web address]: Martha Kelly on 10/29/19 1:49 pm * Is the patient Alert and Oriented? Yes * PCP Dr. Morrissey in [place] * Pharmacy [facility] * Preadmission Environment Home with Family * ADLs Partial Dependent * Partial ADLs (Assistance needed) Ambulation * Equipment Bedside Commode Cane Nebulizer Other Oxygen Walker * Other Equipment Trilogy Portable oxygen * List name and contact numbers for known caregivers / representatives who currently or will assist patient after discharge: Nicholas Jarrell - [facility] - [phone] * Verbal permission to speak to the caregivers and representatives has been obtained from the patient. Yes * Community resources currently utilized Home Health * Please name any agencies selected above. [facility] * Additional services required to return to the preadmission environment? Yes * Can the patient safely return to the preadmission environment? No * Has this patient been hospitalized within the prior 30 days at any hospital? No Patient Name: DENIZ JARRELL Page [phone] at 1352 All edits/amendments must be made on the electronic document DICTATION DATE: 10/29/19 1351 HIGH SCHOOL MATH TUTOR: MARÍA 10/29/19 1351 RPT#: [id number] DC DATE: STATUS: ADM IN [facility] [address] [place] [address] END OF REPORT
--- NOTE | 2019-10-29 14:00 | MORECARE ---
CASE MANAGEMENT DISCHARGE SUMMARY PATIENT: DENIZ JARRELL UNIT: [id number] ADM DATE: 10/24/19 AGE: 74 : 41 SEX: F ROOM/BED: D.0535 AUTHOR: ABHILASH,DOC PHYSICIAN: REFERRING PHYSICIAN: ANITA LIZAMA MD DATE OF SERVICE: 10/29/19 Discharge Plan Patient Name: DENIZ JARRELL Facility: [facility]:[place] : 1945 Planned Disposition: Alf Facility Anticipated Discharge Date: Discharge Date: Expected LOS: Initial Reviewer: [id number] Initial Review Date: 10/29/2019 Generated: 10/29/19 2:59 pm Comments DCP- Discharge Planning Updated by [id number]: Martha Kelly on 10/29/19 12:[address] Patient Name: DENZI JARRELL Admission Status: Elective Accout number: [id number] Admission Date: 10-24-2019 : 1945 Admission Diagnosis: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 She asks me to call her to speak with him about discharge disposition. I called her spouse and informed him that the physician and PT notes indicate that she may require rehab or a long term facility. I spoke with him about rehab, SNF, LTACH. He states that he and his daughter will be coming in [facility] to visit with the patient [facility] at 7PM to discuss plan. I informed him that I would leave some brochures at the bedside. CM left brochures for SNF, including [facility] in [place] and LTACH /SNF QUAN lists. Patient has 2 wound vacs to abdomen. I called and spoke with Analilia at [facility] and they are accepting skilled patients at this time. Analilia states they may need Covid test. I informed Analilia that patient does have her own trilogy and also has 2 wound vacs that would need to be available at the facility. Analilia states they can accommodate that need. Analilia also states they can transport patient to dialysis as she has dialysis MWF at [place] dialysis unit. CM will continue to follow and assist with discharge planning/needs and will send a referral when family has decided on plan and closer to discharge. Miner Placer: Martha Kelly [facility] - Discharge Planning Initial Assessment Updated by [id number]: Martha Thakkarjuan on 10/29/19 1:49 pm * Is the patient Alert and Oriented? Yes * PCP Dr. Morrissey in [place] * Pharmacy [facility] * Preadmission Environment Home with Family * ADLs Partial Dependent * Partial ADLs (Assistance needed) Ambulation * Equipment Bedside Commode Cane Nebulizer Other Oxygen Walker * Other Equipment Trilogy Portable oxygen * List name and contact numbers for known caregivers / representatives who currently or will assist patient after discharge: Nicholas Jarrell - [facility] - [phone] * Verbal permission to speak to the caregivers and representatives has been obtained from the patient. Yes * Community resources currently utilized Home Health * Please name any agencies selected above. [facility] * Additional services required to return to the preadmission environment? Yes * Can the patient safely return to the preadmission environment? No * Has this patient been hospitalized within the prior 30 days at any hospital? No Last DP export: 10/29/19 12:52 p Patient Name: DENIZ JARRELL Page [phone] at 1400 All edits/amendments must be made on the electronic document DICTATION DATE: 10/29/19 1355 MANAGER COMMUNITY DEVELOPMENT: MARÍA 10/29/19 1359 RPT#: [id number] DC DATE: STATUS: ADM IN [facility] [address] [place] [address] END OF REPORT
[2019-10-29 15:00] VITALS: BP 127/34
--- NOTE | 2019-10-29 19:30 | NUR ---
PT IN BED, EYES CLOSED, RESP EVEN AND UNLABORED, NO DISTRESS NOTED, PT RECEIVING DIALYSIS AT THIS TIME, PT FAMILY MEMBER TO VISIT, PT CL IN REACH, SR UP X 2.
[2019-10-29 20:00] VITALS: BP 143/34
--- NOTE | 2019-10-29 21:21 | NUR ---
PLACED PT ON BIPAP 16/8 40% FABY APPLICATION WELL CURRENT SPO2 97% ZERO IMMEDIATE S/S RESP DISTRESS NOTED
[2019-10-30] VITALS: BP 147/39
[2019-10-30 04:00] VITALS: BP 176/40
[2019-10-30 04:53] LABS: BASOPHILS 0.2 % (0-2); EOSINOPHILS 1.1 % (0-7); HEMOGLOBIN 8.3 g/dL (12-16); IMMATURE GRANULOCYTES 3.6 % (0-5); LYMPHOCYTES 4.6 % (15-50); MCHC 30.7 g/dL (31.0-37.0); MCV 100.7 fL (80.0-100.0); MEAN PLATELET VOLUME 9.1 fL (7.4-10.4); MONOCYTES 6.8 % (2-11); NEUTROPHILS 83.7 % (40-80); PLATELET COUNT 214 10x3/uL (130-400); RBC 2.68 10x6/uL (4.00-5.40); RDW 15.4 % (11.5-14.5); WBC 11.4 10x3/uL (4.8-10.8)
[2019-10-30 05:08] LABS: INR 1.22 (0.85-1.17); PROTIME 15.3 SECONDS (11.6-15.0)
[2019-10-30 05:21] LABS: ANION GAP 19.7 mmol/L (8-16); BILIRUBIN - TOTAL 0.55 mg/dL (0.2-1.3); CALCIUM 8.9 mg/dL (8.5-10.1); CARBON DIOXIDE 23.1 mmol/L (21.0-32.0); CREATININE - SERUM 5.9 mg/dL (0.6-1.3); PHOSPHOROUS 8.4 mg/dL (2.5-4.9); POTASSIUM - SERUM 4.8 mmol/L (3.5-5.1); PROTEIN - SERUM 6.8 g/dL (6.4-8.2); VANCOMYCIN - RANDOM 25.7 ug/mL (10.0-20.0)
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
[2019-10-30 10:33] VITALS: BP 146/40
--- NOTE | 2019-10-30 11:32 | NUR ---
WOUND VAC DRESSING CHANGE DATE: 10/30/2019 WOUND LOCATION: #1 RIGHT LOWER ABDOMEN #2 LEFT LOWER ABDOMEN WOUND MEASUREMENTS: #1: 16CM X 38CM X 4CM X 4CM FROM 9-3 OCLOCK (NO CHANGE) #2: 6CM X 15CM X 6CM (NO CHANGE) WOUND DESCRIPTION: BOTH WOUNDS SHOW RED TISSUE WITH SUB-Q TISSUE NOTED MUSCLE, TENDON, OR BONE EXPOSED? NO DRAINAGE AMOUNT/DESCRIPTION: VAC VERAFLO INSTILLING DAKINS 1/2 STRENGTH IN BOTH WOUNDS ODOR? NO TYPE OF SPONGE USED AND AMOUNT: #1: 2 BLACK SPONGES #2: 1 BLACK SPONGE SETTINGS: : 45CC DAKINS SOLUTION - SOAK FOR 30 MIN - REMOVE SOLUTION THEN -125MMHG LOW CONTINUOUS X 4 HOURS TEACHING: FREQUENCY OF DRESSING CHANGES.
--- NOTE | 2019-10-30 12:13 | MORECARE ---
CASE MANAGEMENT DISCHARGE SUMMARY PATIENT: DENIZ JARRELL UNIT: [id number] ADM DATE: 10/24/19 AGE: 74 : 43 SEX: F ROOM/BED: D.2104 AUTHOR: ABHILASH,DOC PHYSICIAN: REFERRING PHYSICIAN: ANITA LIZAMA MD DATE OF SERVICE: 10/30/19 Discharge Plan Patient Name: DENIZ JARRELL Facility: [facility]:[place] : 1945 Planned Disposition: Shelter Facility Anticipated Discharge Date: Discharge Date: Expected LOS: Initial Reviewer: [id number] Initial Review Date: 10/29/2019 Generated: 10/30/19 1:12 pm Comments DCP- Discharge Planning Updated by [id number]: Martha Kelly on 10/30/19 11:[address] Usha Jarrell - DTR - [phone] DCP- Discharge Planning Updated by [id number]: Martha Kelly on 10/30/19 11:[address] CM called patient's daughter, Usha, about their discharge plan for her mother. Usha states she has picked up the information I left and will speak to patient's tonight about what LTACH they would like a referral to. I informed them that I could send a referral, but she will need to be accepted by the facility when ready for discharge. They will also consider [facility] at [place], however patient will need to be mobile enough to transport to dialysis 3 times a week by the facility and at this point, she is unable to do that. CM will continue to follow and assist with discharge planning/needs. 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 She asks me to call her to speak with him about discharge disposition. I called her spouse and informed him that the physician and PT notes indicate that she may require rehab or a half-way facility. I spoke with him about rehab, SNF, LTACH. He states that he and his daughter will be coming in [facility] to visit with the patient [facility] at 7PM to discuss plan. I informed him that I would leave some brochures at the bedside. CM left brochures for SNF, including [facility] in [place] and LTACH /SNF QUAN lists. Patient has 2 wound vacs to abdomen. I called and spoke with Analilia at [facility] and they are accepting skilled patients at this time. [facility] states they may need Covid test. I informed [facility] that patient does have her own trilogy and also has 2 wound vacs that would need to be available at the facility. [facility] states they can accommodate that need. [facility] also states they can transport patient to dialysis as she has dialysis MWF at [place] dialysis unit. CM will continue to follow and assist with discharge planning/needs and will send a referral when family has decided on plan and closer to discharge. Still Operator Whiskey: Martha Kelly [facility] - Discharge Planning Initial Assessment Updated by [id number]: Martha Kelly on 10/29/19 1:49 pm * Is the patient Alert and Oriented? Yes * PCP Dr. Morrissey in [place] * Pharmacy [facility] * Preadmission Environment Home with Family * ADLs Partial Dependent * Partial ADLs (Assistance needed) Ambulation * Equipment Bedside Commode Cane Nebulizer Other Oxygen Walker * Other Equipment Trilogy Portable oxygen * List name and contact numbers for known caregivers / representatives who currently or will assist patient after discharge: Nicholas Jarrell - spouse - [phone] * Verbal permission to speak to the caregivers and representatives has been obtained from the patient. Yes * Community resources currently utilized Home Health * Please name any agencies selected above. [facility] * Additional services required to return to the preadmission environment? Yes * Can the patient safely return to the preadmission environment? No * Has this patient been hospitalized within the prior 30 days at any hospital? No Last DP export: 10/29/19 1:00 p Patient Name: DENIZ JARRELL Page [phone] at 1213 All edits/amendments must be made on the electronic document DICTATION DATE: 10/30/191211 OIL WELL LOGGING ENGINEER: MARÍA 10/30/191211 RPT#: [id number] DC DATE: STATUS: ADM IN [facility] [address] [place] [address] END OF REPORT
--- NOTE | 2019-10-30 12:59 | NUR ---
Nutrition Follow-up: Poor appetite/PO intake. Denies N/V. Unsure of last BM. Agreed to Nepro. Diet: Renal ADA PO intake: 0% x 9 meals Wt: 265.1# (10/24) Labs noted: Glu 170, PO4 8.4, Alb 2.0 Meds noted: Renvela, Dulcolax, Lasix, Protonix, Remeron, Humalog -Encourage PO intake and honor food preferences within diet restrictions. -+Nepro with meals. -If PO intake does not improve, MD may consider nutrition support. -Need new wt. -RD following.
[2019-10-30 13:03] VITALS: BP 147/34
--- NOTE | 2019-10-30 16:10 | NUR ---
I have reviewed this patient and I concur with the Shift Assessment completed by the Licensed Practical Nurse today this shift.
--- NOTE | 2019-10-30 19:30 | NUR ---
PT IN BED, EYES CLOSED, PT RECEIVING DIALYSIS AT BEDSIDE, RESP EVEN AND UNLABORED., NO DISTRESS NOTED. CL IN REACH, SR UP X 2.
[2019-10-30 20:00] VITALS: BP 124/93
--- NOTE | 2019-10-31 01:53 | NUR ---
I have reviewed this patient and I concur with the Shift Assessment completed by the Licensed Practical Nurse today this shift.
[2019-10-31 04:00] VITALS: BP 145/41
[2019-10-31 05:10] LABS: BASOPHILS 0.3 % (0-2); EOSINOPHILS 1.8 % (0-7); HEMOGLOBIN 7.9 g/dL (12-16); IMMATURE GRANULOCYTES 3.6 % (0-5); LYMPHOCYTES 7.3 % (15-50); MCH 30.4 pg (26.0-34.0); MCHC 30.4 g/dL (31.0-37.0); MONOCYTES 7.5 % (2-11); NEUTROPHILS 79.5 % (40-80); PLATELET COUNT 186 10x3/uL (130-400); RDW 15.2 % (11.5-14.5); WBC 10.9 10x3/uL (4.8-10.8)
[2019-10-31 05:21] LABS: INR 1.24 (0.85-1.17); PROTIME 15.5 SECONDS (11.6-15.0)
[2019-10-31 05:36] LABS: ALBUMIN 1.8 g/dL (3.4-5.0); ANION GAP 14.5 mmol/L (8-16); BILIRUBIN - TOTAL 0.56 mg/dL (0.2-1.3); CALCIUM 8.6 mg/dL (8.5-10.1); CARBON DIOXIDE 25.8 mmol/L (21.0-32.0); CREATININE - SERUM 4.6 mg/dL (0.6-1.3); PHOSPHOROUS 6.6 mg/dL (2.5-4.9); POTASSIUM - SERUM 4.3 mmol/L (3.5-5.1); PROTEIN - SERUM 6.3 g/dL (6.4-8.2); VANCOMYCIN - RANDOM 21.2 ug/mL (10.0-20.0)
--- NOTE | 2019-10-31 07:08 | NUR ---
PT LAYING SUPINE. ON BIPAP AT THIS TIME. RESTING, RR EVEN AND UNLABORED. NO DISTRESS NOTED AT THIS TIME. STABLE ON CONTINUOUS PULSE OX. WILL CONTINUE TO MONITOR.
[2019-10-31 08:50] VITALS: BP 147/99
[2019-10-31 11:00] VITALS: BP 135/28
--- NOTE | 2019-10-31 13:32 | NUR ---
OT NOTE: BED MOB TO INCLUDE ROLLING WITH MAX ASSIST X 2 IN ORDER TO COMPLETE PERINEAL CARE. AROM FOR UES; PROM FOR LES; PT SCREAMED THE ENTIRE TIME DURING TMT. SCREAMS IN PAIN WITH ALL MOVEMENT. ATTEMPTED TO HAVE PT PERFORM HAND AND FACE WASHING BUT SHE WAS UNABLE TO DUE TO PAIN CUONG RAMOS, OTR/L [phone]
[2019-10-31 15:00] VITALS: BP 134/26
--- NOTE | 2019-10-31 15:05 | NUR ---
OT NOTE: PT COMPLETED UE AAROM TOLERATED. PT VERY VERBAL AND SCREAMS. PT REQUIRED EXTENSIVE REDIRECTION FOR LITTLE TO NO PARTICIPATION. PT COMPLETED SIMPLE FACE AND HAND HYGIENE TASKS WITH TOTAL A. 103-127 THANK YOU,CONTRERAS BOWEN
--- NOTE | 2019-10-31 17:43 | NUR ---
ATTEMPTED TO GET PT TO EAT. PUT FOOD UP TO HER MOUTH AND ENCOURAGED TO EAT, PT REFUSED. STATED SHE WAS NOT HUNGRY.
--- NOTE | 2019-10-31 19:30 | NUR ---
PT IN BED, EYES CLOSED, RESP EVEN AND UNLABORED. PT ON CONTINUOUS PULSE OX AT THIS TIME. BIPAP IN USE, PULSE OX 99% NO DISTRESS NOTED, CL IN REACH, SR UP X 2.
[2019-10-31 20:00] VITALS: BP 117/38
[2019-11-01] VITALS: BP 131/44
[2019-11-01 04:00] VITALS: BP 133/56
--- NOTE | 2019-11-01 05:10 | NUR ---
I have reviewed this patient and I concur with the Shift Assessment completed by the Licensed Practical Nurse today this shift.
[2019-11-01 05:37] LABS: INR 1.24 (0.85-1.17); PROTIME 15.5 SECONDS (11.6-15.0)
[2019-11-01 05:51] LABS: HEMATOCRIT 25.7 % (36.0-48.0); HEMOGLOBIN 7.9 g/dL (12-16); MCH 30.6 pg (26.0-34.0); MCHC 30.7 g/dL (31.0-37.0); MCV 99.6 fL (80.0-100.0); MEAN PLATELET VOLUME 9.3 fL (7.4-10.4); PLATELET COUNT 170 10x3/uL (130-400); RBC 2.58 10x6/uL (4.00-5.40); RDW 15.2 % (11.5-14.5); WBC 11.7 10x3/uL (4.8-10.8)
[2019-11-01 06:07] LABS: ANION GAP 18.3 mmol/L (8-16); BILIRUBIN - TOTAL 0.67 mg/dL (0.2-1.3); CALCIUM 8.5 mg/dL (8.5-10.1); CARBON DIOXIDE 23.1 mmol/L (21.0-32.0); PHOSPHOROUS 7.6 mg/dL (2.5-4.9); POTASSIUM - SERUM 4.4 mmol/L (3.5-5.1); PROTEIN - SERUM 6.6 g/dL (6.4-8.2); VANCOMYCIN - RANDOM 21.4 ug/mL (10.0-20.0)
[2019-11-01 06:10] LABS: CREATININE - SERUM 6.5 mg/dL (0.6-1.3)
--- NOTE | 2019-11-01 07:30 | NUR ---
PT LAYING SUPINE, RR EVEN AND UNLABORED ON BIPAP. DIET COKE RECIEVED PER REQUEST. CALL LIGHT WITHIN REACH. WOUND CARE NURSE AT BEDSIDE TO CHANGE WOUND VAC. PAIN MEDICATION RECIEVED. WILL CONTINUE TO MONITOR.
[2019-11-01 08:00] VITALS: BP 134/63
[2019-11-01 09:05] LABS: EOSINOPHILS 2 % (0-7); LYMPHOCYTES 5 % (15-50); MONOCYTES 11 % (2-11); NEUTROPHILS 78 % (40-80); PLATELET ESTIMATE NORMAL; ROULEAUX OCC
--- NOTE | 2019-11-01 10:13 | NUR ---
WOUND VAC DRESSING CHANGE DATE: 11/01/2019 WOUND LOCATION: #1: right lower abd #2: left lower abd WOUND MEASUREMENTS: #1 16cm x 38cm x 4cm x 4cm from 9-3 oclock #2 7cm x 15cm x 6cm WOUND DESCRIPTION: #1 dark necrotic tissue is noted on lateral side of incision #2 wound edges are becoming dark/discolored MUSCLE, TENDON, OR BONE EXPOSED? no DRAINAGE AMOUNT/DESCRIPTION: veraflo dakins instillation ODOR? no TYPE OF SPONGE USED AND AMOUNT: #1: 2 black #2: 1 black SETTINGS: -125mmhg low continuous with dakins instillation q 4 hours/soak x 10 min. This is very uncomfortable for pt even when pain medicine has been administered. Wound care continues to monitor. TEACHING:
--- NOTE | 2019-11-01 10:37 | NUR ---
OT NOTE: NURSING REQUESTED TO HOLD SHE HAD JUST FINISHED ROLLING PT AND CHANGING DRESSINGS. SHE REPORTED THAT PT WAS IN SEVERE PAIN AND MAY NOT TOLERATE THERAPY RIGHT NOW. SHE REPORTED THAT THEY ARE ALSO LOOKING AT HOSPICE. WILL HOLD TMT TODAY. CUONG RAMOS, OTR/L
[2019-11-01 12:00] VITALS: BP 137/51
--- NOTE | 2019-11-01 12:47 | NUR ---
Nutrition Follow-up: Pt sleeping on bipap at time of visit. RD did not disturb. Chart reviewed. Appetite/PO intake remain poor. Noted Megace started. Diet: Renal ADA, Nepro TID Wt: 265.1# (10/24) Labs noted: K+ 4.4, Glu 171, PO4 7.6, Alb 2.0 Meds noted: Renvela, Dulcolax, Lasix, Protonix, Remeron, Humalog, Megace -Encourage PO intake and honor food preferences within diet restrictions. -MD may consider nutrition support if medically indicated and/or desired. -Need new wt to assess for malnutrition. -RD following.
[2019-11-01 20:30] VITALS: BP 140/34
[2019-11-02 00:30] VITALS: BP 136/33
[2019-11-02 05:13] LABS: BASOPHILS 0.2 % (0-2); EOSINOPHILS 1.8 % (0-7); HEMATOCRIT 27.9 % (36.0-48.0); HEMOGLOBIN 8.5 g/dL (12-16); IMMATURE GRANULOCYTES 4.9 % (0-5); MCH 30.1 pg (26.0-34.0); MCHC 30.5 g/dL (31.0-37.0); MCV 98.9 fL (80.0-100.0); MEAN PLATELET VOLUME 9.7 fL (7.4-10.4); MONOCYTES 9.6 % (2-11); NEUTROPHILS 75.5 % (40-80); PLATELET COUNT 151 10x3/uL (130-400); RBC 2.82 10x6/uL (4.00-5.40); RDW 15.7 % (11.5-14.5); WBC 12.5 10x3/uL (4.8-10.8)
[2019-11-02 05:34] LABS: INR 1.25 (0.85-1.17); PROTIME 15.6 SECONDS (11.6-15.0)
[2019-11-02 05:38] LABS: ALBUMIN 2.1 g/dL (3.4-5.0); ANION GAP 17.3 mmol/L (8-16); BILIRUBIN - TOTAL 0.61 mg/dL (0.2-1.3); CALCIUM 8.7 mg/dL (8.5-10.1); CARBON DIOXIDE 25.2 mmol/L (21.0-32.0); CREATININE - SERUM 5.6 mg/dL (0.6-1.3); MAGNESIUM - SERUM 2.4 mg/dL (1.8-2.4); PHOSPHOROUS 7.3 mg/dL (2.5-4.9); POTASSIUM - SERUM 4.5 mmol/L (3.5-5.1); PROTEIN - SERUM 6.8 g/dL (6.4-8.2); VANCOMYCIN - RANDOM 18.3 ug/mL (10.0-20.0)
--- NOTE | 2019-11-02 06:28 | NUR ---
I have reviewed this patient and I concur with the Shift Assessment completed by the Licensed Practical Nurse today this shift.
[2019-11-02 09:56] VITALS: BP 143/38
[2019-11-02 13:04] VITALS: BP 136/32
--- NOTE | 2019-11-02 14:45 | NUR ---
Karley SHEPHERD, RN ASSISTED ME WITH DAKINS INSTILLATION PER WOUND CARE INSTRUCTIONS. CL IN REACH. BED ALARM ON. PATIENT HAS NO FURTHER NEEDS AT THIS TIME. DIONISIO
--- NOTE | 2019-11-02 15:50 | NUR ---
WOUND VAC ALARMING. INSTILLATION COMPLETED. NO NEEDS. CL IN REACH. BED ALARM ON. WCTM
[2019-11-02 18:00] VITALS: BP 118/42
[2019-11-02 20:30] VITALS: BP 137/60
--- NOTE | 2019-11-02 21:00 | NUR ---
RESING QUEITLY WITH NO DISTRESS NOTED.WOUND VAC INTACT TO BILATERAL ABD. FISTULA NOTED TO RIGHT ARM. DIAYLSIS M-W-F. DAUGHTER AT BEDSIDE CL IN REACH.
[2019-11-03 04:30] VITALS: BP 133/83
[2019-11-03 05:08] LABS: HEMATOCRIT 28.5 % (36.0-48.0); HEMOGLOBIN 8.9 g/dL (12-16); LYMPHOCYTES 6.6 % (15-50); MCH 29.9 pg (26.0-34.0); MCHC 31.2 g/dL (31.0-37.0); MCV 95.6 fL (80.0-100.0); NEUTROPHILS 82.7 % (40-80); PLATELET COUNT 130 10x3/uL (130-400); RBC 2.98 10x6/uL (4.00-5.40); RDW 14.9 % (11.5-14.5); WBC 12.6 10x3/uL (4.8-10.8)
[2019-11-03 05:20] LABS: INR 1.12 (0.85-1.17); PROTIME 14.3 SECONDS (11.6-15.0)
[2019-11-03 05:33] LABS: ALBUMIN 2.5 g/dL (3.4-5.0); ANION GAP 18.6 mmol/L (8-16); BILIRUBIN - TOTAL 0.81 mg/dL (0.2-1.3); CALCIUM 8.7 mg/dL (8.5-10.1); CARBON DIOXIDE 23.9 mmol/L (21.0-32.0); CREATININE - SERUM 6.8 mg/dL (0.6-1.3); POTASSIUM - SERUM 4.5 mmol/L (3.5-5.1); PROTEIN - SERUM 7.2 g/dL (6.4-8.2); VANCOMYCIN - RANDOM 17.4 ug/mL (10.0-20.0)
--- NOTE | 2019-11-03 05:42 | NUR ---
I have reviewed this patient and I concur with the Shift Assessment completed by the Licensed Practical Nurse today this shift.
--- NOTE | 2019-11-03 10:07 | NUR ---
PT CONFUSED AND TALKING TO HERSELF. BREATH SOUNDS DIMINISHED TO LOWER LOBES, 4L O2 PER NC. TELEMETRY IN PLACE. TRIALYSIS TO RIGHT SIDE OF CHEST. WOUND VACS TO BILAT SIDES OF ABDOMEN, DRESSINGS INTACT. FIRST DRESSING SOAK OF SHIFT COMPLETED AT 0700. REDDNESS NOTED TO FOLDS AND BUTTOCKS. SCABS OR SORES ALL OVER. PT NOT COOPERATIVE IN SWALLOWING MEDICATIONS THIS MORNING, CRUSHED AND GIVEN IN PUDDING. FAMILY AT BEDSIDE. BED LOW, CALL LIGHT IN REACH. NO OTHER NEEDS AT THIS TIME.
[2019-11-03 15:11] VITALS: BP 136/53
[2019-11-03 17:55] VITALS: BP 143/34
--- NOTE | 2019-11-03 19:10 | NUR ---
RESTING WITH EYES CLOSED WOUND VAC X2 BED LOW AND LOCKED RESP EVEEN AN UNLABORED SPO2 90% CALL LIGHT IS IN REACH OF PT
[2019-11-03 20:30] VITALS: BP 137/77
--- NOTE | 2019-11-03 21:21 | NUR ---
ATTEMPT AT PO MEDS FAILED PT STRUGGLED AND I DID FINGER SWEEP TO REMOVE PILLS SUBSEQUENT ATTEMPTS WITH JUST WATER FAILED WELL..PT IS NOT SWALLOWING AT THIS TIME
--- NOTE | 2019-11-03 21:48 | NUR ---
RESTING WITH EVEN RESP NO SIGN OF ASSPERATION
--- NOTE | 2019-11-04 00:03 | NUR ---
PT CALLING OUT IN PAIN PRN WILL BE GIVEN
[2019-11-04 00:30] VITALS: BP 150/44
--- NOTE | 2019-11-04 00:58 | NUR ---
PT RESTING CALMLY AGAIN RESP AT 18 SPO2 94%
--- NOTE | 2019-11-04 04:01 | NUR ---
RESTING DRSG SOAK DONE
[2019-11-04 04:30] VITALS: BP 103/28
--- NOTE | 2019-11-04 05:03 | NUR ---
ATTEMPTED BITE OF PUDDING AND WATER PT NOT SWALLOWING THIS AM HELD AM MEDS
[2019-11-04 06:32] LABS: INR 1.27 (0.85-1.17); PROTIME 15.8 SECONDS (11.6-15.0)
[2019-11-04 06:46] LABS: HEMATOCRIT 27.2 % (36.0-48.0); HEMOGLOBIN 8.6 g/dL (12-16); LYMPHOCYTES 4.5 % (15-50); MCH 30.6 pg (26.0-34.0); MCHC 31.6 g/dL (31.0-37.0); MCV 96.8 fL (80.0-100.0); MEAN PLATELET VOLUME 10.2 fL (7.4-10.4); PLATELET COUNT 118 10x3/uL (130-400); RBC 2.81 10x6/uL (4.00-5.40); RDW 15.1 % (11.5-14.5)
[2019-11-04 06:53] LABS: ALBUMIN 2.6 g/dL (3.4-5.0); BILIRUBIN - TOTAL 1.46 mg/dL (0.2-1.3); CALCIUM 8.7 mg/dL (8.5-10.1); CREATININE - SERUM 8.1 mg/dL (0.6-1.3); PROTEIN - SERUM 6.3 g/dL (6.4-8.2); VANCOMYCIN - RANDOM 20.9 ug/mL (10.0-20.0)
[2019-11-04 06:55] LABS: WBC 16.5 10x3/uL (4.8-10.8)
[2019-11-04 07:02] LABS: ANION GAP 21.5 mmol/L (8-16); POTASSIUM - SERUM 5.5 mmol/L (3.5-5.1)
[2019-11-04 09:51] VITALS: BP 166/41
--- NOTE | 2019-11-04 10:46 | NUR ---
PT ASLEEP, ROUSES TO VERBAL STIMULI BUT DOES NOT MAKE SENSABLE SENTANCES. CL IN REACH,SRX2.
--- NOTE | 2019-11-04 11:28 | NUR ---
WOUND VAC DRESSING CHANGE DATE: 11/04/2019 WOUND LOCATION: #1: RIGHT LOWER ABDOMEN #2: LEFT LOWER ABDOMEN WOUND MEASUREMENTS: #1: 15CM X 38CM X 4.5CM X 5CM FROM 9-3 OCLOCK #2: 7CM X 15CM X 6CM WOUND DESCRIPTION: #1 - OUTER WOUND EDGE IS TURNING DARK/DISCOLORING-NO GRANULATION NOTED #2 - NO GRANULATION NOTED MUSCLE, TENDON, OR BONE EXPOSED? NO (SQ TISSUE NOTED) DRAINAGE AMOUNT/DESCRIPTION: YELLOW TINGE TO DAKINS AFTER SOAK TIME IS OVER AND FLUID WITHDRAWN ODOR? NO ODOR TYPE OF SPONGE USED AND AMOUNT: #1 3 CLEANSE CHOICE MEDIUM #2 3 CLEANSE CHOICE MEDIUM SETTINGS: VERAFLO / DAKINS 1/2 STRENGTH / 10 MIN SOAK / 4 HOUR WOUND VAC @ -125MMGH LOW CONTINUOUS TEACHING: N/A PT IS VERY UNCOMFORTABLE / HURTING WITH EACH DRESSING CHANGE EVEN THOUGH SHE HAS BEEN PREMEDICATED.
--- NOTE | 2019-11-04 12:23 | NUR ---
Nutrition Follow-up: Pt not eating. Noted PN started on 11/01 (4.25/10 @ 40; provides 490 kcal & 41 g protein daily). Noted pt now DNR but family not ready for hospice. Diet: Renal ADA Wt: 265.1# (10/24) Labs noted: K+ 5.5, Glu 277, Alb 2.6 Meds noted: Albumin, Megace, Renvela, Dulcolax, Lasix, Humalog, Protonix, Remeron -Parenteral nutrition per MD. Current formula/rate not meeting needs. RD available to assist as needed. -Monitor wt. -RD following.
--- NOTE | 2019-11-04 12:54 | NUR ---
PT BLOOD PREASURE WAS READING 80S/20S ON THE AUTO VITAL SIGN MACHINE. MANUAL WAS 132/52. CL INR EACH, SRX, PT RESTING.
[2019-11-04 13:18] VITALS: BP 130/52
[2019-11-04 16:00] VITALS: BP 163/47
--- NOTE | 2019-11-04 16:03 | NUR ---
I have reviewed this patient and I concur with the Shift Assessment completed by the Licensed Practical Nurse today this shift.
--- NOTE | 2019-11-04 18:23 | NUR ---
PT LYING IN BED, RESTING FITFULLY. WAKES AND ANSWERS [facility] BUT WITH NOTED DIFFICULTY. SPOKE TO POA AND GOT CONCENTS FOR PROCEDURE TOMORROW AM. PT STILL UNABLE TO SWALLOW. PT BEGAN HAVING DIFFICULTY BREATHING WHEN SHE CAME OFF THE BIPAP PER HER INSISTANCE AND REQUEST NOT TO WEAR IT AGAIN. SHE IMMEDIATLEY BEGAN DSATING INTO THE 70S, BUMPED HFNC UP TO 11 BEFORE SHE WAS (IS CURRENTLY) BEGAN SETTING 88-92%. STILL HAVING DIFFICULTY MAINTAING O2 LEVELS. ADMINSITERED PAIN MEDICATION PT WAS SCREAMING OUT REPEATEDLY BEGGING GOD TO HELP HER. PT WAS BEGGING FOR RELEASE. CURRENTLY RESTING FITFULLY. DAUGHTER STATED THAT ONE OF THEM WILL ATTEMPT TO COME UP TONIGHT I PRESSED THE DECLINE IN PTS CONDITION. CHERRY DOUGLAS AND DR. HONG ARE AWARE OF DECLINE. CL INR EACH, SRX2,
--- NOTE | 2019-11-04 19:00 | NUR ---
REPORT RECEIVED, WILL CONTINUE POC. PATIENT IS RESTING WITH EYES CLOSED, NO S/S OF DISTRESS OBSERVED. RR EVEN AND UNLABORED ON 11L HFNC O2 SAT 93% WOUND VAC IN PLACE, WORKING PROPERLY. CL IN REACH, BED LOCKED AND LOWERED. WILL CTM.
--- NOTE | 2019-11-04 20:03 | NUR ---
DIALYSIS NURSE AT [facility], UNSURE OF DR. JOHNSON'S DESIRE TO PERFORM DIALYSIS TONIGHT. SHE SAYS SHE HAS ALREADY TEXTED DR. JOHNSON AND IS JUST AWAITING INSTRUCTIONS.
--- NOTE | 2019-11-04 21:30 | NUR ---
DIALYSIS NURSE AT BEDSIDE PREPARING TO DIALYZE PATIENT PER DR. JOHNSON. PATIENT VSS.
[2019-11-04 21:51] VITALS: BP 135/41
--- NOTE | 2019-11-04 23:12 | NUR ---
DIALYSIS COMPLETE PER DIALYSIS NURSE PATIENT RR DROPPED TO 10/MIN, OTHERWISE VSS. NO S/S OF DISTRESS OBSERVED, RR EVEN AND UNLABORED.
--- NOTE | 2019-11-05 03:02 | NUR ---
I have reviewed this patient and I concur with the Shift Assessment completed by the Licensed Practical Nurse today this shift.
[2019-11-05 05:03] VITALS: BP 142/42
--- NOTE | 2019-11-05 05:06 | NUR ---
PATIENT YELLING OUT IN PAIN WHEN DIRECT OF REAL ESTATE AND I ATTEMPTED TO CHANGED HER LINENS. ADMINISTERED PRN BUPRENEX. PATIENT STATES, "NO YOU DIDN'T". LINENS CHANGED, PATIENT REPOSITIONED.
[2019-11-05 05:52] LABS: BASOPHILS 0.2 % (0-2); EOSINOPHILS 0.1 % (0-7); HEMATOCRIT 25.9 % (36.0-48.0); IMMATURE GRANULOCYTES 3.1 % (0-5); LYMPHOCYTES 3.5 % (15-50); MCHC 30.9 g/dL (31.0-37.0); MEAN PLATELET VOLUME 10.4 fL (7.4-10.4); MONOCYTES 8.1 % (2-11); PLATELET COUNT 122 10x3/uL (130-400); RBC 2.67 10x6/uL (4.00-5.40); RDW 15.7 % (11.5-14.5); WBC 18.1 10x3/uL (4.8-10.8)
[2019-11-05 06:19] LABS: ALBUMIN 2.7 g/dL (3.4-5.0); ANION GAP 27.7 mmol/L (8-16); BILIRUBIN - TOTAL 1.77 mg/dL (0.2-1.3); CALCIUM 8.9 mg/dL (8.5-10.1); CARBON DIOXIDE 20.2 mmol/L (21.0-32.0); CREATININE - SERUM 7.8 mg/dL (0.6-1.3); POTASSIUM - SERUM 5.9 mmol/L (3.5-5.1); PROTEIN - SERUM 6.5 g/dL (6.4-8.2)
--- NOTE | 2019-11-05 07:00 | NUR ---
RECEIVED BEDSIDE REPORT ON PATIENT AND ASSUMED CARE. PATIENT RESTING QUIETLY WITH EYES CLOSED, DAUGHTER AT BEDSIDE, ON BIPAP 16/8 FIO2 - 40% WITH SPO2 95%, HR -62, RR - 20, NONLABORED, EASILY AROUSED BY VOICE. ALERT CONFUSED TO SITUATION AND YEAR. WOUND VAC TO LEFT ABDOMEN INTACT, DRESSING C/D/I. RIGHT IJ TRIALYSIS CATH INPLACE DRESSING C/D/I. LEFT A/D FISUTULA NOTED WITH GOOD BRUIT AND THRILL. NS INFUSING AT 10 ML/HR AND TPN AT 40 ML/HR. HEAD TO TOE ASSESSMENT COMPLETED.
[2019-11-05 09:46] VITALS: BP 189/47
--- NOTE | 2019-11-05 11:05 | NUR ---
PREOP MEDS GIVEN PER ORDER.
--- NOTE | 2019-11-05 11:43 | MORECARE ---
CASE MANAGEMENT DISCHARGE SUMMARY PATIENT: DENIZ JARRELL UNIT: [id number] ADM DATE: 10/24/19 AGE: 74 : 43 SEX: F ROOM/BED: D.2104 AUTHOR: ABHILASH,DOC PHYSICIAN: REFERRING PHYSICIAN: ANITA LIZAMA MD DATE OF SERVICE: 11/05/19 Discharge Plan Patient Name: DENIZ JARRELL Facility: [facility]:[place] : 1945 Planned Disposition: Detention Facility Anticipated Discharge Date: Discharge Date: Expected LOS: Initial Reviewer: [email or web address] Initial Review Date: 10/29/2019 Generated: 11/05/19 12:43 pm DCP- Discharge Planning Updated by [id number]: Martha Kelly on 10/30/19 11:[address] Usha Jarrell - DTR - [phone] DCP- Discharge Planning Updated by [email or web address]: Martha Kelly on 10/30/19 11:[address] CM called patient's daughter, Usha, about their discharge plan for her mother. Usha states she has picked up the information I left and will speak to patient's tonight about what LTACH they would like a referral to. I informed them that I could send a referral, but she will need to be accepted by the facility when ready for discharge. They will also consider [facility] at [place], however patient will need to be mobile enough to transport to dialysis 3 times a week by the facility and at this point, she is unable to do that. CM will continue to follow and assist with discharge planning/needs. 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 She asks me to call her to speak with him about discharge disposition. I called her spouse and informed him that the physician and PT notes indicate that she may require rehab or a [facility] facility. I spoke with him about rehab, SNF, LTACH. He states that he and his daughter will be coming in [facility] to visit with the patient [facility] at 7PM to discuss plan. I informed him that I would leave some brochures at the bedside. CM left brochures for SNF, including [facility] in [place] and LTACH /SNF QUAN lists. Patient has 2 wound vacs to abdomen. I called and spoke with Analilia at [facility] and they are accepting skilled patients at this time. [facility] states they may need Covid test. I informed [facility] that patient does have her own trilogy and also has 2 wound vacs that would need to be available at the facility. [facility] states they can accommodate that need. [facility] also states they can transport patient to dialysis as she has dialysis MWF at [place] dialysis unit. CM will continue to follow and assist with discharge planning/needs and will send a referral when family has decided on plan and closer to discharge. Corporate Counselor: Martha Kelly [facility] - Discharge Planning Initial Assessment Updated by [id number]: Martha Kelly on 10/29/19 1:49 pm * Is the patient Alert and Oriented? Yes * PCP Dr. Morrissey in [place] * Pharmacy [facility] * Preadmission Environment Home with Family * ADLs Partial Dependent * Partial ADLs (Assistance needed) Ambulation * Equipment Bedside Commode Cane Nebulizer Other Oxygen Walker * Other Equipment Trilogy Portable oxygen * List name and contact numbers for known caregivers / representatives who currently or will assist patient after discharge: Nicholas Jarrell - spouse - [phone] * Verbal permission to speak to the caregivers and representatives has been obtained from the patient. Yes * Community resources currently utilized Home Health * Please name any agencies selected above. [facility] * Additional services required to return to the preadmission environment? Yes * Can the patient safely return to the preadmission environment? No * Has this patient been hospitalized within the prior 30 days at any hospital? No External Providers External Provider: Melissa Palacios [facility] Next Contact Date: Service Request Date: Service Type: Resolution: Reviewer: Comments: External Provider: [facility] [place] Next Contact Date: Service Request Date: Service Type: Resolution: Reviewer: Comments: Coverage Notice Reviewer: [email or web address] Marshall Martha Thakkarjuan Notice Issued Date-Time: 11/01/2019 10:15 Notice Type: Patient Choice Letter Notice Delivered To: Family Member Relationship to Patient: Daughter Poultry Pinner Name: Usha Jarrell Delivery Method: HAND - Hand Delivered Madai Days: Prior Verbal Notification: Recipient Understood Notice: Yes Recipient Signature: Yes Med Rec Note Co-signed by Attending: Coverage Notice Comment: LTACH at [place] or [facility] Last DP export: 10/30/19 11:13 a Patient Name: DENIZ JARRELL Page [phone] at 1143 All edits/amendments must be made on the electronic document DICTATION DATE: 11/05/19 1143 MACHINE UMBRELLA TIPPER: MARÍA 11/05/19 1143 RPT#: [id number] DC DATE: STATUS: ADM IN [facility] [address] [place] [address] END OF REPORT
--- NOTE | 2019-11-05 11:51 | MORECARE ---
CASE MANAGEMENT DISCHARGE SUMMARY PATIENT: DENIZ JARRELL UNIT: [id number] ADM DATE: 10/24/19 AGE: 74 : 43 SEX: F ROOM/BED: D.2107 AUTHOR: ABHILASH,DOC PHYSICIAN: REFERRING PHYSICIAN: ANITA LIZAMA MD DATE OF SERVICE: 11/05/19 Discharge Plan Patient Name: DENIZ JARRELL Facility: [facility]:[place] : 1945 Planned Disposition: Intermediate Facility Anticipated Discharge Date: Discharge Date: Expected LOS: Initial Reviewer: [id number] Initial Review Date: 10/29/2019 Generated: 11/05/19 12:50 pm Comments DCP- Discharge Planning Updated by [email or web address]: Martha Kelly on 11/05/19 10:[address] I faxed face sheet to [facility] in [place] (spoke with Bryanna) and [facility] in [place] and spoke with Isak to follow for possible admission to LTAC. CM will continue to follow and assist with discharge planning/needs. DCP- Discharge Planning Updated by [id number]: Martha Kelly on 10/30/19 11:[address] Usha Jarrell - DTR - [phone] DCP- Discharge Planning Updated by [id number]: Martha Kelly on 10/30/19 11:[address] CM called patient's daughter, Usha, about their discharge plan for her mother. Usha states she has picked up the information I left and will speak to patient's tonight about what LTACH they would like a referral to. I informed them that I could send a referral, but she will need to be accepted by the facility when ready for discharge. They will also consider [facility] [place], however patient will need to be mobile enough to transport to dialysis 3 times a week by the facility and at this point, she is unable to do that. CM will continue to follow and assist with discharge planning/needs. 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 She asks me to call her to speak with him about discharge disposition. I called her spouse and informed him that the physician and PT notes indicate that she may require rehab or a long-term facility. I spoke with him about rehab, SNF, LTACH. He states that he and his daughter will be coming in [facility] to visit with the patient [facility] at 7PM to discuss plan. I informed him that I would leave some brochures at the bedside. CM left brochures for SNF, including [facility] in [place] and LTACH /SNF QUAN lists. Patient has 2 wound vacs to abdomen. I called and spoke with Analilia at [facility] and they are accepting skilled patients at this time. [facility] states they may need Covid test. I informed [facility] that patient does have her own trilogy and also has 2 wound vacs that would need to be available at the facility. [facility] states they can accommodate that need. [facility] also states they can transport patient to dialysis as she has dialysis MWF at [place] dialysis unit. CM will continue to follow and assist with discharge planning/needs and will send a referral when family has decided on plan and closer to discharge. Fingerprint Expert: Martha Kelly [facility] - Discharge Planning Initial Assessment Updated by [email or web address]: Martha Kelly on 10/29/19 1:49 pm * Is the patient Alert and Oriented? Yes * PCP Dr. Morrissey in [place] * Pharmacy [facility] * Preadmission Environment Home with Family * ADLs Partial Dependent * Partial ADLs (Assistance needed) Ambulation * Equipment Bedside Commode Cane Nebulizer Other Oxygen Walker * Other Equipment Trilogy Portable oxygen * List name and contact numbers for known caregivers / representatives who currently or will assist patient after discharge: Nicholas Jarrell - spouse - [phone] * Verbal permission to speak to the caregivers and representatives has been obtained from the patient. Yes * Community resources currently utilized Home Health * Please name any agencies selected above. [facility] * Additional services required to return to the preadmission environment? Yes * Can the patient safely return to the preadmission environment? No * Has this patient been hospitalized within the prior 30 days at any hospital? No Coverage Notice Reviewer: [id number] Marshall Kelly Notice Issued Date-Time: 11/01/2019 10:15 Notice Type: Patient Choice Letter Notice Delivered To: Family Member Relationship to Patient: Daughter Tool Polisher Name: Usha Jarrell Delivery Method: HAND - Hand Delivered Madai Days: Prior Verbal Notification: Recipient Understood Notice: Yes Recipient Signature: Yes Med Rec Note Co-signed by Attending: Coverage Notice Comment: LTACH at [facility] Last DP export: 11/05/19 10:44 a Patient Name: DENIZ JARRELL Page [phone] at 1151 All edits/amendments must be made on the electronic document DICTATION DATE: 11/05/19 115 FEATHER MAKER: MARÍA 11/05/19 1150 RPT#: [id number] DC DATE: STATUS: ADM IN [facility] [address] [place] [address] END OF REPORT
--- NOTE | 2019-11-05 12:37 | NUR ---
OT NOTE: OT TO DC AT THIS TIME.. PT HAS BEEN ON HOLD SECONDARY TO SEVERE PAIN AND PT NOW GOING FOR SURGERY TODAY. DISCUSSED WITH TEAM AND INFORMED THAT THERAPY WOULD DC. WILL RE ASSESS IF PT IMPROVES. THANK YOU, CUONG RAMOS, OTR/L
[2019-11-05 12:49] VITALS: BP 118/48
--- NOTE | 2019-11-05 16:21 | NUR ---
PATIENT C/O PAIN TO ABDOMEN, PRN PAIN MED GIVEN IVP. MEDS PER MAR. REPOSITIONED IN BED.
--- NOTE | 2019-11-05 16:23 | NUR ---
DR. REZA AT ROOM UPDATED AND EXAMINES PATIENT.
--- NOTE | 2019-11-05 16:47 | NUR ---
PATIENT RESTING QUIETLY, NO NEEDS AT THIS TIME.
[2019-11-05 17:07] VITALS: BP 152/48
--- NOTE | 2019-11-05 19:00 | NUR ---
REPORT RECEIVED, WILL CONTINUE POC. PATIENT IS RESTING WITH EYES CLOSED, NO S/S OF DISTRESS OBSERVED, RR EVEN AND UNLABORED ON BIPAP. CL IN REACH, BED LOCKED AND LOWERED. WILL CTM.
--- NOTE | 2019-11-05 19:43 | NUR ---
PATIENT DAUGHTER CALLED FOR UPDATE, PASSCODE VERIFIED AND UPDATE GIVEN.
--- NOTE | 2019-11-05 20:51 | NUR ---
DIALYSIS AT BEDSIDE. PATIENT YELLING OUT IN PAIN. PRN BUPRENEX ADMINISTERED PER ORDERS.
[2019-11-05 23:58] VITALS: BP 171/46
--- NOTE | 2019-11-06 01:06 | NUR ---
I have reviewed this patient and I concur with the Shift Assessment completed by the Licensed Practical Nurse today this shift.
[2019-11-06 04:05] VITALS: BP 182/44
--- NOTE | 2019-11-06 05:00 | NUR ---
ADMINISTERED PRN BUPRENEX PER ORDER, PATIENT GRIMACING IN PAIN. PATIENT REPOSITIONED, NO BM OR VOID THIS SHIFT.
[2019-11-06 08:11] VITALS: BP 145/30
[2019-11-06 08:40] LABS: ALBUMIN 2.9 g/dL (3.4-5.0); BILIRUBIN - TOTAL 2.65 mg/dL (0.2-1.3); CALCIUM 9.4 mg/dL (8.5-10.1); CARBON DIOXIDE 23.4 mmol/L (21.0-32.0); CREATININE - SERUM 6.3 mg/dL (0.6-1.3); PROTEIN - SERUM 7.2 g/dL (6.4-8.2)
[2019-11-06 08:42] LABS: ANION GAP 21.2 mmol/L (8-16); POTASSIUM - SERUM 4.6 mmol/L (3.5-5.1)
[2019-11-06 09:40] LABS: BASOPHILS 0.2 % (0-2); EOSINOPHILS 2.2 % (0-7); HEMATOCRIT 23.3 % (36.0-48.0); IMMATURE GRANULOCYTES 1.1 % (0-5); LYMPHOCYTES 5.6 % (15-50); MCH 29.6 pg (26.0-34.0); MCHC 30.9 g/dL (31.0-37.0); MCV 95.9 fL (80.0-100.0); MEAN PLATELET VOLUME 9.7 fL (7.4-10.4); MONOCYTES 6.5 % (2-11); NEUTROPHILS 84.4 % (40-80); PLATELET COUNT 108 10x3/uL (130-400); RBC 2.43 10x6/uL (4.00-5.40); RDW 15.8 % (11.5-14.5)
[2019-11-06 09:41] LABS: HEMOGLOBIN 7.2 g/dL (12-16)
[2019-11-06 11:42] VITALS: BP 127/32
--- NOTE | 2019-11-06 14:10 | NUR ---
WOUND VAC DRESSING CHANGE DATE:11/06/2019 WOUND LOCATION: #1 right lower abd #2 left lower abd WOUND MEASUREMENTS: #1 15cm x 39cm x 5cm x 2.5cm from 9-3 oclock #2 7cm x 15cm x 6cm WOUND DESCRIPTION: #1 black necrotic tissue on lateral side of wound. Noted a small area of red tissue on medial aspect of wound - which is an improvement #2 brown tissue MUSCLE, TENDON, OR BONE EXPOSED? no DRAINAGE AMOUNT/DESCRIPTION: no ODOR? no TYPE OF SPONGE USED AND AMOUNT: #1 used 3 cleanse choice sponges #2 used 2 cleanse choice sponges SETTINGS: soak with 240cc dakins 1/2 strength for 10 minutes the uninstill and go to -125mmhg low continuous
[2019-11-06 14:56] VITALS: BP 17/42
--- NOTE | 2019-11-06 19:00 | NUR ---
REPORT RECEIVED, WILL CONTINUE POC. PATIENT IS RESTING WITH EYES CLOSED, NO S/S OF DISTRESS OBSERVED ON BIPAP AT THIS TIME RR UNEVEN AT 19 BREATHS PER MIN. CL IN REACH, BED LOCKED AND LOWERED. WILL CTM.
--- NOTE | 2019-11-06 19:00 | NUR ---
REPORT RECEIVED, WILL CONTINUE POC. PATIENT AWAKE ON BIPAP LOOKING AROUND ROOM. DIALYSIS NURSE KIRSTY AT BEDSIDE. NO S/S OF DISTRESS OBSERVED, RR UNEVEN BUT UNLABORED ON BIPAP. CL IN REACH, BED LOCKED AND LOWERED. WILL CTM.
--- NOTE | 2019-11-06 19:45 | NUR ---
DIALYSIS NURSE CALLED FOR BLOOD FROM LAB. PICKED UP BLOOD FROM LAB AND SIGNED WITH DIALYSIS NURSE KIRSTY TO INITIATE.
--- NOTE | 2019-11-06 22:59 | NUR ---
SPOKE TO CONNIE, PHARMACIST SYSTEMS CONSULTANT DUE TO MEDICATION EXPIRING AT 11AM THIS MORNING. SHE WAS UNABLE TO VERFIY WHETHER IT SHOULD BE HUNG OR NOT. SHE PAGED [facility] ON-CALL PHARMICIST FOR FURTHER INSTRUCTION.
--- NOTE | 2019-11-06 23:21 | NUR ---
ON-CALL PHARMACIST CONNIE SAYS THE MEDICATION SODIUM THIOSULFATE THAT WE HAVE IS AND A NEW BAG WILL HAVE TO BE PREPARED. CALLED LUMBER YARD WORKER KARLA WITH THIS INFORMATION.
[2019-11-07 00:48] VITALS: BP 95/65
--- NOTE | 2019-11-07 03:39 | NUR ---
I have reviewed this patient and I concur with the Shift Assessment completed by the Licensed Practical Nurse today this shift.
[2019-11-07 05:29] LABS: BASOPHILS 0.2 % (0-2); EOSINOPHILS 2.8 % (0-7); HEMATOCRIT 27.3 % (36.0-48.0); HEMOGLOBIN 8.5 g/dL (12-16); LYMPHOCYTES 5.8 % (15-50); MCH 29.5 pg (26.0-34.0); MCHC 31.1 g/dL (31.0-37.0); MCV 94.8 fL (80.0-100.0); MONOCYTES 10.1 % (2-11); NEUTROPHILS 80.1 % (40-80); PLATELET COUNT 116 10x3/uL (130-400); RBC 2.88 10x6/uL (4.00-5.40); RDW 16.6 % (11.5-14.5); WBC 8.6 10x3/uL (4.8-10.8)
[2019-11-07 05:58] LABS: ALBUMIN 3.5 g/dL (3.4-5.0); ANION GAP 15.5 mmol/L (8-16); BILIRUBIN - TOTAL 3.37 mg/dL (0.2-1.3); CALCIUM 8.1 mg/dL (8.5-10.1); CARBON DIOXIDE 27.6 mmol/L (21.0-32.0); POTASSIUM - SERUM 4.1 mmol/L (3.5-5.1); PROTEIN - SERUM 6.5 g/dL (6.4-8.2)
[2019-11-07 06:00] VITALS: BP 178/50
[2019-11-07 06:03] LABS: CREATININE - SERUM 4.4 mg/dL (0.6-1.3)
[2019-11-07 08:11] VITALS: BP 123/61
--- NOTE | 2019-11-07 09:30 | NUR ---
PT LETHARGIC AROUSED PT WITH TOUCH STIMULATION ON CHEST ASKED PT IF SHE WILL TRY TO TAKE MEDS TODAY AND SHE REFUSED AND CLOSED EYS BACK.
--- NOTE | 2019-11-07 11:18 | NUR ---
Nutrition Follow-up: Pt still not eating. PPN @ 40. HD yesterday (-2 L). Diet: Renal, Nepro TID PO intake: 0% yesterday Wt: 311.9# (11/05); 265.1# (10/24) Last BM: 11/01 per chart Labs noted: Glu 255, Ca 8.1, Alb 3.5 Meds noted: Albumin, Megace, Miralax, Renvela, Dulcolax, Lasix, Humalog -Pt not eating and current parenteral nutrition not meeting pt's needs. RD available to assist as needed. -Monitor wt; noted daily wts ordered. -RD following.
[2019-11-07 12:13] VITALS: BP 160/38
--- NOTE | 2019-11-07 12:20 | NUR ---
PT'S FAMILY MEMBER LIST: JAMAICA NJALLE (GRANDSON), LOUIE NJALLE (GRANDDAUGHTER), DEBBIE JARRELL (SPOUSE), CATHY JARRELL (DAUGHTER), ALCON CHRYSTAL (SON), STARJOEL JARRELL (DAUGHTER), CLIFFORD JARRELL (DAUGHTER), AND NADIYA PAIGE (GRANDDAUGHTER).
--- NOTE | 2019-11-07 12:21 | NUR ---
PT'S GRANDDAUGHTER NADIYA PAIGE HAS BEEN IN PT'S ROOM VISITING HER THIS MORNING. I SPOKE WITH HER SEVERAL TIMES THAT PT IS ALLOWED THREE VISITORS PER EVERY 24 HOURS AND ONLY ONE AT A TIME IN ROOM AND THAT I NEED THE NAMES OF THE THREE VISIOTS TODAY. SHE VERBALIZED UNDERSTNAIDNG AND STATED PT'S AND DUAVTARGTER ARE ON THEIR WAY UP TO THE HOSPITAL. AGAIN I STATED TO HER ONE AT A TIME IN ROOM. SHE VERBALIZED UNDERSTANDING. AT THIS TIME PT'S DAUGHTER AND PT'S DEBBIE ENETER ROOM. THREE VISITORS ARE NOW IN PT'S ROOM AT THIS TIME. STATED TO ALL THREE FAMILY MEMBER'S I NEED THEIR NAMES AND ONLY ONE CAN BE IN THE ROOM AT THIS TIME. THEY ALL IGNORED AND WERE PASSIVE WITH ME REPEATING MYSELF SEVERAL TIMES. WENT AND GOT ALBINA RN AND ALBINA RN AND THIS NURSE WENT INTO PT'S ROOM TO SPEAK WITH FAMILY. YESI ALVAREZ STATED TO FAMILY POLICY RULES AND PT'S KARRIE GOT UPSET AND STARTED CRYING STATING PT IS DYING AND SHE WANTS AND NEEDS HER FAMILY AND ALL THE FMAILY ARE ON THEIR WAY TO THE HOSPITAL. YESI ALVAREZ VERBALIZED UNDERSTANDING AND APOLOGIZED AND STATED ADMINISTRATION IS ONLY ALLOWING THREE VISIORS A DAY. PT'S DAUGHTER DEMANDED FOR US TO CALL ADMINISTRATION AND TALK TO THEM AGAIN. KIERSTEN ALVAREZ WENT AND CALLED ADMINISTRATION AND THIS NURSE TOOK DOWN NAMES OF 7 DIFFERENT FAMILY MEMEBER THE FAMILY IS WANTING TO VISIT PT TODAY. ALBINA ALVAREZ SPOKE WITH ADMINISTRATION AND ADMINISTRATION SAID ONLY 3 VISITORS A DAY AND NO MORE. ALBINA ALVAREZ STATED THIS TO DAUGHTER WHO IS NOW THE ONLY PERSON AT PT'S BEDSIDE.
--- NOTE | 2019-11-07 12:23 | NUR ---
THERE ARE THREE FAMILY MEMBERS HERE TO SEE PATIENT AT THIS TIME. THEY UNDERSTAND THAT THEY CAN ONLY HAVE 3/24 HRS. THEY STATE THAT THERE ARE 8 TOTAL PEOPLE WANTING TO SEE PATIENT TODAY. I CALLED DOT IN [place]MIN WHO SPOKE WITH SAM AND CLARIFIED THAT THEY CAN ONLY HAVE 3/24 HRS. THIS IS RELAYED TO STEPHANIE PRIMARY NURSE AND TO A FEMALE MEMBER IN THE ROOM.
--- NOTE | 2019-11-07 13:27 | NUR ---
I have reviewed this patient and I concur with the Shift Assessment completed by the Licensed Practical Nurse today this shift.
--- NOTE | 2019-11-07 15:09 | NUR ---
PT'S DAUGHTER WENT TO CLINICAL PHARMACY COORDINATOR AND DEMANDED MORE FAMILY BE ABLE TO COME VISIT AND THAT ALL OF THE PT'S FAMILY IS IN THE ER AND THEY ARE GOING TO COME SEE PT. STEFANI FROM ADMINISTRATION CALLED AND STATED PT IS TO ONLY HAVE THE SAME THREE VISITORS TODAY AND TOMORROW PT WILL GO BACK TO HAVING ONE A DAY AND IF THERE ARE ANY PROBLEMS SECURITY WILL BE CALLED.
[2019-11-07 16:05] VITALS: BP 145/93
--- NOTE | 2019-11-07 19:15 | NUR ---
PT AROUSES WITH VERBAL STIMULI BUT GOES RIGHT BACK TO SLEEP. SHE WAS UNABLE TO ANSWER MY QUESTIONS. SHE IS ON THE BIPAP 40% O2. O2 SAT 100%. BILATERAL ABDOMINAL WOUND VACS WORKING PROPERLY. SHE DOES NOT APPEAR TO BE IN DISTRESS AT THIS TIME. BED IS LOW AND CALL LIGHT IS WITHIN REACH.
[2019-11-07 20:32] VITALS: BP 158/68
[2019-11-08 03:10] VITALS: BP 162/70
[2019-11-08 05:07] LABS: BASOPHILS 0.2 % (0-2); HEMATOCRIT 28.1 % (36.0-48.0); HEMOGLOBIN 8.6 g/dL (12-16); IMMATURE GRANULOCYTES 0.9 % (0-5); LYMPHOCYTES 6.5 % (15-50); MCH 29.5 pg (26.0-34.0); MCHC 30.6 g/dL (31.0-37.0); MCV 96.2 fL (80.0-100.0); MEAN PLATELET VOLUME 10.3 fL (7.4-10.4); MONOCYTES 11.5 % (2-11); NEUTROPHILS 77.9 % (40-80); PLATELET COUNT 115 10x3/uL (130-400); RBC 2.92 10x6/uL (4.00-5.40); RDW 16.4 % (11.5-14.5); WBC 8.8 10x3/uL (4.8-10.8)
[2019-11-08 05:34] LABS: ALBUMIN 2.9 g/dL (3.4-5.0); ANION GAP 17.8 mmol/L (8-16); BILIRUBIN - TOTAL 2.64 mg/dL (0.2-1.3); CALCIUM 8.9 mg/dL (8.5-10.1); CARBON DIOXIDE 25.6 mmol/L (21.0-32.0); POTASSIUM - SERUM 4.4 mmol/L (3.5-5.1); PROTEIN - SERUM 7.2 g/dL (6.4-8.2)
[2019-11-08 05:36] LABS: CREATININE - SERUM 5.9 mg/dL (0.6-1.3)
--- NOTE | 2019-11-08 08:08 | NUR ---
PT SUPINE IN BED WITH BIPAP MACHINE ON UPON ENTERING. WILL AROUSE TO VOICE, GOES BACK TO SLEEP EASILY. BED IN LOWEST POSITION, BED RAILS X2, CALL LIGHT WITHIN REACH. WILL CONTINUE TO MONITOR.
--- NOTE | 2019-11-08 09:10 | NUR ---
ADMINISTERED MORNING MEDICATION, NO DIFFICULTIES. GAVE SUBCUT HEPARIN AND RETACRIT, TOLERATED WELL. RESTING IN BED. DENIES ANY NEEDS. DRANK HALF OF A LARGE CUP OF WATER FOR ME AT THIS TIME. DENIES ANY NEEDS. BED IN LOWEST POSITION, BED RAILS X2, CALL LIGHT WITHIN REACH. WILL CONTINUE TO MONITOR. ASSESSMENT PERFORMED AT THIS TIME.
--- NOTE | 2019-11-08 09:43 | NUR ---
ADMINISTERED PRN NORCO FOR PAIN 01/22. WOUND CARE NURSE IN ROOM, CHANGING WOUND VAC DRESSINGS. DENIES ANY NEEDS. WILL CONTINUE TO MONITOR.
[2019-11-08 10:36] VITALS: BP 146/50
--- NOTE | 2019-11-08 11:41 | NUR ---
WOUND VAC DRESSING CHANGE DATE: 11/08/2019 WOUND LOCATION: #1 right lower abdomen #2 left lower abdomen WOUND MEASUREMENTS: #1 15cm x 39cm x 5cm x 2.5cm from 9-3 oclock #2 7cm x 15cm x 6cm WOUND DESCRIPTION: #1 necrotic tissue noted on lateral area of wound #2 no granulation noted MUSCLE, TENDON, OR BONE EXPOSED? no DRAINAGE AMOUNT/DESCRIPTION: unknown. veraflo is in use instilling fluid ODOR? no TYPE OF SPONGE USED AND AMOUNT: #1 3 cleanse choice sponges #2 2 cleanse choice sponges 1/2 strength dakins in instilling (240cc) in right wound and (45cc) in left soaking for 10 min then resume vac settings at -125mmhg low continuous x 3.5 hours TEACHING: dressing change schedule
--- NOTE | 2019-11-08 11:56 | NUR ---
PT RESTING IN BED. ASSESSED BLOOD SUGAR. 232, GAVE 8 UNITS INSULIN PER SLIDING SCALE. FAMILY AT BEDSIDE. DENIES ANY NEEDS. WILL CONTINUE TO MONITOR.
[2019-11-08 15:48] VITALS: BP 154/52
--- NOTE | 2019-11-08 16:14 | NUR ---
I have reviewed this patient and I concur with the Shift Assessment completed by the Licensed Practical Nurse today this shift.
--- NOTE | 2019-11-08 18:16 | NUR ---
HUNG IV TPN, ALBUMIN IS DONE RUNNING. CHANGED ALL IV TUBING. RESTING COMFORTABLY. DIALYSIS IS IN THE ROOM. WAITING FOR THEM TO FINISH TO REASSESS BLOOD SUGAR. WILL CONTINUE TO MONITOR.
--- NOTE | 2019-11-08 19:30 | NUR ---
PT IN BED, EYES CLOSED, JUST FINISHED DIALYSIS, 1 LITER TAKEN OFF, RESP EVEN AND UNLABORED. CONTINOUS PULSE OX 98% AT THIS TIME.CL IN REACH, SR UP X 2.
[2019-11-08 20:30] VITALS: BP 155/63
[2019-11-09 00:26] VITALS: BP 182/54
--- NOTE | 2019-11-09 04:05 | NUR ---
I have reviewed this patient and I concur with the Shift Assessment completed by the Licensed Practical Nurse today this shift.
[2019-11-09 04:30] VITALS: BP 180/50
--- NOTE | 2019-11-09 08:00 | NUR ---
PT RESTING COMFORTABLY. NO SIGNS OR SYMTPOMS OF ACUTE DISTRESS NOTED AT THIST AGUILAR. BREATHS EVEN/REUGLAR AND UNLABORED. CL IN REACH, SRX.
[2019-11-09 10:06] VITALS: BP 90/53
[2019-11-09 13:12] VITALS: BP 142/50
--- NOTE | 2019-11-09 14:20 | NUR ---
PT RESTING COMFORTABLY, IF SHE WAKES SHE WILL START MOANING IN PAIN. CL IN REACH, SRX2.
[2019-11-09 17:26] VITALS: BP 168/62
--- NOTE | 2019-11-09 19:39 | NUR ---
PATIENT RESTING IN BED WITH AND DENIES NEEDS AT THIS TIME. BED IN LOWEST POSITION AND CALL LIGHT WITHIN REACH. REFILLED FLUSH CONTAINER FOR WOUND VAC. ENCOURAGED THE PATIENT TO CALL IF SHE HAS NEEDS. WILL CONTINUE TO MONITOR.
[2019-11-09 20:30] VITALS: BP 148/62
[2019-11-10 00:55] VITALS: BP 140/60
--- NOTE | 2019-11-10 04:09 | NUR ---
ANDRES COFFMAN APN DESIGN PAINTER FOR DR LIZAMA IN REGARDS TO PATIENT'S ELEVATED HEART RATE
[2019-11-10 04:30] VITALS: BP 150/68
--- NOTE | 2019-11-10 07:24 | NUR ---
PT LYING IN BED. UNRESPONSIVE TO QUESTIONS. MOANING IN BED. LOOKS GENERALLY UNCOMFORATBLE AND UNWELL. WOULD NOT WAKE UP FULLY. CL IN REACH, SRX2
--- NOTE | 2019-11-10 08:31 | NUR ---
PTS TEMPERATURE IS 102.9. PT IS MOANING, HOT TO TOUCH. ADMINSISTERED PAIN MEDS AND SUPPOSITORY TYLENOL. TECHS IN ROOM ADMINISTERING BED BATH. WILL CONT. TO MONITOR.
--- NOTE | 2019-11-10 08:35 | NUR ---
CALLED AND SPOKE TO DAUGHTER CATHY, INFORMED OF PATIENTS CONDITION.
--- NOTE | 2019-11-10 08:45 | NUR ---
[facility] [phone]
[2019-11-10 10:01] VITALS: BP 152/48
--- NOTE | 2019-11-10 10:17 | NUR ---
PT STILL UNRESPONSIVE. TOLERATED BED BATH MODERALTELY POORLY. MOANING WHENEVER SHE WAS TURNED. CL IN REACH,S RX2.
--- NOTE | 2019-11-10 11:35 | NUR ---
I have reviewed this patient and I concur with the Shift Assessment completed by the Licensed Practical Nurse today this shift.
[2019-11-10 14:10] VITALS: BP 162/52
[2019-11-10 18:22] VITALS: BP 140/70
--- NOTE | 2019-11-10 19:00 | NUR ---
REPORT RECEIVED, WILL CONTINUE POC. PATIENT IS RESTING WITH EYES CLOSED, LETHARGIC. NO S/S OF DISTRESS OBSERVED, RR EVEN AND UNLABORED. PATIENT GENERALLY LOOKS POORLY. CL IN REACH, BED LOCKED AND LOWERED. MALE FAMILY MEMEBER AT BEDSIDE. WILL CTM.
[2019-11-10 20:30] VITALS: BP 118/38
--- NOTE | 2019-11-10 21:00 | NUR ---
PATIENTS DAUGHTER ASKED TO SPEAK WITH ME REGARDING PATIENT STATUS. UPDATE GIVEN. SHE SAID SHE WAS LEAVING FOR THE NIGHT AND WOULD LIKE TO BE CALLED IF PATIENT CONDITION CHANGES.
--- NOTE | 2019-11-10 21:30 | NUR ---
PATIENT MOANING IN PAIN, ADMINISTERED PRN BUPRENEX PER ORDERS.
--- NOTE | 2019-11-11 04:09 | NUR ---
PATIENT MOANING IN PAIN, ADMINISTERED PRN BUPRENEX PER ORDER. HUNG ALBUMIN PER ORDER.
[2019-11-11 04:30] VITALS: BP 116/42
--- NOTE | 2019-11-11 06:40 | NUR ---
CHANGED BED PADS AND REPOSITIONED PATIENT. PERFORMED ORAL CARE AND ADMINISTERED TYLENOL SUPPOSITORY FOR LOW GRADE TEMP OF 100.2.
[2019-11-11 06:53] LABS: CALCIUM 9.1 mg/dL (8.5-10.1); CARBON DIOXIDE 25.7 mmol/L (21.0-32.0); CREATININE - SERUM 7.1 mg/dL (0.6-1.3)
[2019-11-11 07:20] LABS: BASOPHILS 0.2 % (0-2); EOSINOPHILS 0.2 % (0-7); HEMATOCRIT 23.8 % (36.0-48.0); IMMATURE GRANULOCYTES 1.3 % (0-5); MCH 29.6 pg (26.0-34.0); MCHC 29.8 g/dL (31.0-37.0); MCV 99.2 fL (80.0-100.0); MEAN PLATELET VOLUME 10.6 fL (7.4-10.4); NEUTROPHILS 82.3 % (40-80); PLATELET COUNT 104 10x3/uL (130-400); RDW 16.5 % (11.5-14.5)
[2019-11-11 07:24] LABS: POTASSIUM - SERUM 6.7 mmol/L (3.5-5.1)
[2019-11-11 07:25] LABS: HEMOGLOBIN 7.1 g/dL (12-16)
--- NOTE | 2019-11-11 08:58 | NUR ---
PT AT 854, CALLED BY DR. LIZAMA. [facility] RENAL GATEHOUSE ATTENDANT, CALLED [facility] AT 904, WAITING EXTENSION SERVICE SUPERVISOR BACK. CALLED FAMILY
--- NOTE | 2019-11-11 09:15 | NUR ---
SPOKE TO [facility] OFFICE, [facility] AKBAR. SPOKE TO ABDI, ROLANDO NOT A CANDIDATE MEDICAL RULE OUT. CALLED DOMINIQUE STATES THAT THEY WILL SEND SOMEONE ON THE WAY. FAMILY RELEASED BODY OVER THE PHONE.
--- NOTE | 2019-11-11 10:06 | MORECARE ---
CASE MANAGEMENT DISCHARGE SUMMARY PATIENT: DENIZ JARRELL UNIT: [id number] ADM DATE: 10/24/19 AGE: 74 : 43 SEX: F ROOM/BED: D.2102 AUTHOR: ABHILASH,DOC PHYSICIAN: REFERRING PHYSICIAN: ANITA LIZAMA MD DATE OF SERVICE: 11/11/19 Discharge Plan Patient Name: DENIZ JARRELL Facility: [facility]:[place] : 1945 Planned Disposition: Fdc Facility Anticipated Discharge Date: Discharge Date: Expected LOS: Initial Reviewer: [email or web address] Initial Review Date: 10/29/2019 Generated: 11/11/19 11:05 am Comments DCP- Discharge Planning Updated by [email or web address]: Yaneth Perez on 11/11/19 9:[address] . DCP- Discharge Planning Updated by [email or web address]: Martha Kelly on 11/05/19 10:[address] I faxed face sheet to [facility] in [place] (spoke with Bryanna) and [facility] in [place] and spoke with Isak to follow for possible admission to LTAC. CM will continue to follow and assist with discharge planning/needs. DCP- Discharge Planning Updated by [id number]: Martha Kelly on 10/30/19 11:[address] Usha Jarrell - DTR - [phone] DCP- Discharge Planning Updated by [email or web address]: Martha Kelly on 10/30/19 11:[address] CM called patient's daughter, Usha, about their discharge plan for her mother. Usha states she has picked up the information I left and will speak to patient's kris about what LTACH they would like a referral to. I informed them that I could send a referral, but she will need to be accepted by the facility when ready for discharge. They will also consider [facility] at [place], however patient will need to be mobile enough to transport to dialysis 3 times a week by the facility and at this point, she is unable to do that. CM will continue to follow and assist with discharge planning/needs. 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 She asks me to call her to speak with him about discharge disposition. I called her spouse and informed him that the physician and PT notes indicate that she may require rehab or a correction facility. I spoke with him about rehab, SNF, LTACH. He states that he and his daughter will be coming in [facility] to visit with the patient [facility] at 7PM to discuss plan. I informed him that I would leave some brochures at the bedside. CM left brochures for SNF, including [facility] in [place] and LTACH /SNF QUAN lists. Patient has 2 wound vacs to abdomen. I called and spoke with Analiila at [facility] and they are accepting skilled patients at this time. Fisher states they may need Covid test. I informed Fisher that patient does have her own trilogy and also has 2 wound vacs that would need to be available at the facility. Fisher states they can accommodate that need. Fisher also states they can transport patient to dialysis as she has dialysis MWF at [place] dialysis unit. CM will continue to follow and assist with discharge planning/needs and will send a referral when family has decided on plan and closer to discharge. Staple Shear Operator: Martha Kelly [facility] - Discharge Planning Initial Assessment Updated by [id number]: Martha Kelly on 10/29/19 1:49 pm * Is the patient Alert and Oriented? Yes * PCP Dr. Morrissey in [place] * Pharmacy [facility] * Preadmission Environment Home with Family * ADLs Partial Dependent * Partial ADLs (Assistance needed) Ambulation * Equipment Bedside Commode Cane Nebulizer Other Oxygen Walker * Other Equipment Trilogy Portable oxygen * List name and contact numbers for known caregivers / representatives who currently or will assist patient after discharge: Nicholas Jarrell - spouse - [phone] * Verbal permission to speak to the caregivers and representatives has been obtained from the patient. Yes * Community resources currently utilized Home Health * Please name any agencies selected above. [facility] * Additional services required to return to the preadmission environment? Yes * Can the patient safely return to the preadmission environment? No * Has this patient been hospitalized within the prior 30 days at any hospital? No Coverage Notice Reviewer: [id number] Marshall Kelly Notice Issued Date-Time: 11/01/2019 10:15 Notice Type: Patient Choice Letter Notice Delivered To: Family Member Relationship to Patient: Daughter Grey Roll Worker Name: Usha Jarrell Delivery Method: HAND - Hand Delivered Madai Days: Prior Verbal Notification: Recipient Understood Notice: Yes Recipient Signature: Yes Med Rec Note Co-signed by Attending: Coverage Notice Comment: LTACH at [place] or [facility] Last DP export: 11/05/19 10:50 a Patient Name: DENIZ JARRELL Page [phone] at 1006 All edits/amendments must be made on the electronic document DICTATION DATE: 11/11/19 1005 BOOKBINDER CHIEF: MARÍA 11/11/19 1005 RPT#: [id number] DC DATE: STATUS: ADM IN [facility] [address] [place] [address] END OF REPORT
--- NOTE | 2019-11-11 11:56 | MORECARE ---
CASE MANAGEMENT DISCHARGE SUMMARY PATIENT: DENIZ JARRELL UNIT: [id number] ADM DATE: 10/24/19 AGE: 74 : 43 SEX: F ROOM/BED: D.2104 AUTHOR: ABHILASH,DOC PHYSICIAN: REFERRING PHYSICIAN: ANITA LIZAMA MD DATE OF SERVICE: 11/11/19 Discharge Plan Patient Name: DENIZ JARRELL Facility: [facility]:[place] : 1945 Planned Disposition: Anticipated Discharge Date: 11/11/19 Discharge Date: Expected LOS: 18 Initial Reviewer: [email or web address] Initial Review Date: 10/29/2019 Generated: 11/11/19 12:55 pm Comments DCP- Discharge Planning Updated by [email or web address]: Yaneth Perez on 11/11/19 9:[address] . DCP- Discharge Planning Updated by [email or web address]: Martha Kelly on 11/05/19 10:[address] I faxed face sheet to [facility] in [place] (spoke with Bryanna) and [facility] in [place] and spoke with Isak to follow for possible admission to LTAC. CM will continue to follow and assist with discharge planning/needs. DCP- Discharge Planning Updated by [email or web address]: Martha Kelly on 10/30/19 11:[address] Usha Jarrell - DTR - [phone] DCP- Discharge Planning Updated by [email or web address]: Martha Kelly on 10/30/19 11:[address] CM called patient's daughter, Usha, about their discharge plan for her mother. Usha states she has picked up the information I left and will speak to patient's kris about what LTACH they would like a referral to. I informed them that I could send a referral, but she will need to be accepted by the facility when ready for discharge. They will also consider [facility] at [place], however patient will need to be mobile enough to transport to dialysis 3 times a week by the facility and at this point, she is unable to do that. CM will continue to follow and assist with discharge planning/needs. 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 She asks me to call her to speak with him about discharge disposition. I called her spouse and informed him that the physician and PT notes indicate that she may require rehab or a correction facility. I spoke with him about rehab, SNF, LTACH. He states that he and his daughter will be coming in [facility] to visit with the patient [facility] at 7PM to discuss plan. I informed him that I would leave some brochures at the bedside. CM left brochures for SNF, including [facility] in [place] and LTACH /SNF QU[facility] lists. Patient has 2 wound vacs to abdomen. I called and spoke with Analilia at [facility] and they are accepting skilled patients at this time. Dawson states they may need Covid test. I informed Dawson that patient does have her own trilogy and also has 2 wound vacs that would need to be available at the facility. [facility] states they can accommodate that need. [facility] also states they can transport patient to dialysis as she has dialysis MWF at [place] dialysis unit. will continue to follow and assist with discharge planning/needs and will send a referral when family has decided on plan and closer to discharge. Shoe Lining Fitter: Martha Kelly [facility] - Discharge Planning Initial Assessment Updated by [email or web address]: Martha Kelly on 10/29/19 1:49 pm * Is the patient Alert and Oriented? Yes * PCP Dr. Morrissey in [place] * Pharmacy [facility] * Preadmission Environment Home with Family * ADLs Partial Dependent * Partial ADLs (Assistance needed) Ambulation * Equipment Bedside Commode Cane Nebulizer Other Oxygen Walker * Other Equipment Trilogy Portable oxygen * List name and contact numbers for known caregivers / representatives who currently or will assist patient after discharge: Nicholas Jarrell - spouse - [phone] * Verbal permission to speak to the caregivers and representatives has been obtained from the patient. Yes * Community resources currently utilized Home Health * Please name any agencies selected above. [facility] * Additional services required to return to the preadmission environment? Yes * Can the patient safely return to the preadmission environment? No * Has this patient been hospitalized within the prior 30 days at any hospital? No Coverage Notice Reviewer: [id number] Marshall Kelly Notice Issued Date-Time: 11/01/2019 10:15 Notice Type: Patient Choice Letter Notice Delivered To: Family Member Relationship to Patient: Daughter Inside Sales Recruiter Name: Usha Jarrell Delivery Method: HAND - Hand Delivered Madai Days: Prior Verbal Notification: Recipient Understood Notice: Yes Recipient Signature: Yes Med Rec Note Co-signed by Attending: Coverage Notice Comment: LTACH at [place] or [facility] [place] Last DP export: 11/11/19 9:06 a Patient Name: DENIZ JARRELL Page [phone] at 1156 All edits/amendments must be made on the electronic document DICTATION DATE: 11/11/19 1156 FIREARMS ASSEMBLY SUPERVISOR: MARÍA 11/11/19 1156 RPT#: [id number] DC DATE: STATUS: ADM IN [address] [place] [address] END OF REPORT
--- NOTE | 2019-11-11 12:26 | NUR ---
PT ESCORTED OUT VIA GURNEY WITH HOME.
--- NOTE | 2019-11-12 16:13 | OP ---
PATIENT NAME: DENIZ JARRELL MEDICAL RECORD: [id number] :[birth year] LOCATION:D.M2 D.2104 ADMISSION DATE:10/24/19 SURGEON: SELENA LEWIS MD DATE OF OPERATION: 10/26/2019 REFERRED BY: Dr. Ferris and Dr. Lizama. 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 OPERATION PERFORMED: Excision of necrotic skin and subcutaneous tissue from the abdominal wounds sizing 22 inches in length x 6 inches in width or 851 square cm of surface area with the tissue specimens at least 4 cm in thickness. SURGEON: Selena Lewis MD ANESTHESIA: General per APPLICATION SECURITY ENGINEER. PREOPERATIVE NOTE: Ms. Jarrell is a 74-year-old white female patient on chronic hemodialysis in [place]. She has been diagnosed with calciphylaxis and for the last month has been treated with intravenous sodium thiosulfate without great improvement. She has developed a foul smelling odor in the abdominal area, has 2 large necrotic wounds with gangrenous skin, one on the right and one on the left to the anterior abdomen. She was brought to the operating room at this time to debride these lesions. DESCRIPTION OF PROCEDURE: Under anesthesia in supine position, the patient was prepped and draped in sterile manner. Transversely oriented ellipses of skin and subcutaneous tissues were excised in 2 pieces, in total there was 22 inches in length x 6 inches in width x 4 inches in thickness or 851 square cm in surface area. The fascia was not involved, but the excision extended down to fascia. The wounds were irrigated with saline and hemostasis obtained with suture ligatures of 3-0 Vicryl and electrocautery. The patient was given 10 mg of vitamin K as well as 20 mcg of DDAVP intraoperatively and two units of fresh frozen plasma were ordered, but did not arrive before completion of the operation and are to be given in the recovery room. Blood loss during the operation, 10-20 cc, was unreplaced otherwise. Sponges, instruments and needles were accounted for. No drain was used. The patient's wounds were dressed with 2 separate wound VACs with VAC Vera irrigation type dressings and they are to be changed on Monday and then 3 times a week by automotive brake specialist nurses. I expect the patient will need long-term care such as an LTAC. TRANSINT:[id number] Voice Confirmation ID: [id number] DOCUMENT ID: [id number] OPERATIVE REPORT [id number] DENIZ JARRELL JAMES MD at 1613 CC: RONAK FERRIS MD and ANITA LIZAMA [phone] DICTATION DATE: 10/29/19915 GEOTECHNICAL OPERATING ENGINEER: 10/29/19 1546 DIS IN 11/11/19 [address] [place] [address]
== END 2019-11-11 12:27 | DRG 570 ==
LOC: D.ER 15:09 → D.M2 18:51 → D.SDCHOLD 11-08 15:25 → D.M2 11-08 15:25
PROVIDERS: Emergency Medicine; Internal Medicine; Internal Medicine Nephrology; Surgery; ADMIT Internal Medicine Nephrology; ATTEND Internal Medicine Nephrology
PROC: 5A1D70Z Performance of Urinary Filtration, Intermittent, Less than 6 Hours Per Day (ICD-10-PCS; 2019-10-25)
PROC: 0JB80ZZ Excision of Abdomen Subcutaneous Tissue and Fascia, Open Approach (ICD-10-PCS; principal; 2019-10-26 08:00)
DX: L98.499 Non-pressure chronic ulcer of skin of other sites with unspecified severity (principal); N18.6 End stage renal disease; J96.01 Acute respiratory failure with hypoxia; R40.2124 Coma scale, eyes open, to pain, 24 hours or more after hospital admission; R40.2344 Coma scale, best motor response, flexion withdrawal, 24 hours or more after hospital admission; R40.2224 Coma scale, best verbal response, incomprehensible words, 24 hours or more after hospital admission; L03.311 Cellulitis of abdominal wall; E11.52 Type 2 diabetes mellitus with diabetic peripheral angiopathy with gangrene; I13.2 Hypertensive heart and chronic kidney disease with heart failure and with stage 5 chronic kidney disease, or end stage renal disease; I96 Gangrene, not elsewhere classified; I48.92 Unspecified atrial flutter; Z68.41 Body mass index [BMI] 40.0-44.9, adult; Z66 Do not resuscitate; E83.59 Other disorders of calcium metabolism; E11.622 Type 2 diabetes mellitus with other skin ulcer; E11.22 Type 2 diabetes mellitus with diabetic chronic kidney disease; I50.9 Heart failure, unspecified; Z99.2 Dependence on renal dialysis; J44.9 Chronic obstructive pulmonary disease, unspecified; T45.515A Adverse effect of anticoagulants, initial encounter; I48.91 Unspecified atrial fibrillation; E66.01 Morbid (severe) obesity due to excess calories; R00.0 Tachycardia, unspecified; K21.9 Gastro-esophageal reflux disease without esophagitis; Z79.01 Long term (current) use of anticoagulants